=== PATIENT | male | born 1975 | race Caucasian/White ===

== ENCOUNTER 2018-07-27 08:50 | Emergency (ER) | payer MEDICAID, SELFPAY ==
[2018-07-27 08:51] VITALS: BP 164/114; PULSE 100; RESP 22; TEMP 36.8; O2SAT 100; BMI 31.0
--- NOTE | 2018-07-27 09:01 | CT_ITS ---
STUDY: CT ABDOMEN AND PELVIS WITHOUT CONTRAST REASON FOR EXAM: Male, 42 years old. Right lower quadrant pain. Nausea and vomiting this a.m. RADIATION DOSAGE (If Supplied By Facility): CTDIvol = ( 14.76 ) mGy, DLP = ( 778.33 ) mGycm TECHNIQUE: Transaxial images were obtained from the dome of the diaphragm to the symphysis pubis without oral contrast, and without intravenous contrast. Sagittal and coronal images were reconstructed. Individualized dose optimization techniques were used for this CT. COMPARISON: None. FINDINGS: The visualized lung bases are unremarkable. The visualized portions of the heart are within normal limits. Diffuse fatty infiltration of the liver. Normal gallbladder and extrahepatic biliary system. Normal spleen. Normal pancreas. Normal bilateral adrenal glands. Right kidney: 2 mm nonobstructing calculus in the right upper pole. 5 mm nonobstructing calculus in the anterior aspect of the right lower renal pole. No hydronephrosis. Left kidney: Normal. Normal visualized stomach. Normal small intestine. Small diverticula in the medial aspect of the mid to upper ascending colon without diverticulitis. The appendix is visualized and appears normal. Normal abdominal aorta. Normal inferior vena cava. Normal retroperitoneum. Normal urinary bladder. Normal abdominal wall. L5-S1 disc space height narrowing with degenerative vacuum phenomenon and Modic type III degenerative and sclerotic changes of the vertebral marrow underneath the vertebral endplates. The escape of due to vacuum phenomena and behind the S1 vertebral body is most likely due to posterior annular tear. Minimal anterior posterior marginal spurs. There is slight anterior wedging of L1 superior endplate may be developmental or from remote injury. CT/Abdomen/Pelvis without Cont IMPRESSION: 1. Normal CT of the appendix. 2. Few diverticula in the mid to upper ascending colon without diverticulitis. 3. 2 mm nonobstructing calculus in the right upper renal pole and 5 mm nonobstructing calculus in the right lower renal pole. 4. Diffuse hepatic steatosis. 5. Normal CT of the left kidney. 6. No CT evidence of suspicious mass or acute abnormality in the abdomen and pelvis. 7. Pronounced L5-S1 disc space height narrowing with degenerative vacuum phenomenon, posterior annular tear allowing escape of degenerative vacuum phenomena and behind the S1 body and Modic type III degenerative vertebral marrow sclerosis underneath the vertebral endplates. Electronically Signed: Wilman Lovelace MD at 10:09 EST , Service support ,
--- NOTE | 2018-07-27 09:02 | ED.VISSUMM ---
- ER Visit Summary Date of Service: 07/27/18 Chief Complaint: [] Sudden onset of right flank pain this morning History of Present Illness: The patient is a 42 M [] of IBS is very stable went to bed feeling fine woke at 7 AM with severe pain to the right flank and right abdomen causing vomiting he cannot find a position of comfort he is constantly pacing around the room and vomiting. He has no history of this type of process, he has no history of kidney stones UTI appendicitis abdominal surgeries he has had no vomiting or diarrhea prior to the above he was not around anyone who is sick no exposures again went to bed feeling fine Physical Examination: [] 164/111, general, no distress resting comfortably, until he starts to vomit he is pacing around the room holding his right flank HEENT is generally unremarkable The neck is supple no adenopathy Cardiovascular, regular rate and rhythm Lungs, clear bilateral Abdomen, soft nontender, he complains of pain diffusely over the right flank Extremities, no clubbing cyanosis or edema Neurologic, awake alert answering questions appropriately moving all 4 extremities Test Results: [] Emergency Department Course and Treatment: [] Given the above IV fluids pain management screening labs CT The patient's screening labs are all generally unremarkable, please see those reports, the CT scan shows normal appendix normal intra-abdominal structures, nothing acute no hydronephrosis, he does have 2 kidney stones within the kidney but nothing obstructing His UA is pending as he has not voided yet but feels the need to do so Stable he is feeling much better his symptoms are completely resolved he has no pain no nausea I explained the differential to him the likelihood this is related to a kidney stone likely passed given the nature of his symptoms his presentation, the fact that he has 2 nonobstructing kidney stones in his right kidney, he is comfortable discharge home, Flomax for the next few days, Naprosyn and [place] only as needed and he will follow-up with [facility] and return for change in symptoms Treatment Plan: [] Disposition: [] Home stable Impression: [] Right flank pain resolved, renal colic This note was generated with [employer] software. It may contain incorrect words, spelling, and punctuation that were not noted in review of the chart prior to signing ED Disposition - Plan for ED Patient: Chief Complaint: Abd Pain Referrals: Julius Valentin [Primary Care Provider] -
[2018-07-27 09:20] LABS: Absolute Lymphocyte Count 3.24 X10^3/ul (0.83-4.51); Absolute Neutrophil Count 5.2 X10^3/uL (2.0-7.7); Basophil# 0.02 X10^3/uL; Basophil% 0.2 % (0-1); Eosinophil# 0.08 X10^3/uL; Eosinophils% 0.8 % (0-5); Hematocrit 48.9 % (40-54); Hemoglobin 17.1 g/dl (13.0-16.5); Lymphocyte # 3.24 X10^3/ul (4.0); Lymphocyte % 33.8 % (19-41); Mean Corpuscular Hgb 32.3 pg (27.0-32.0); Mean Corpuscular Volume 92.3 fL (80-94); Mean Platelet Vol. 9.7 fl (6.2-12.0); Monocyte# 1.03 X10^3/uL; Monocyte% 10.7 % (0-10); Neutrophil # 5.22 X10^3/uL (2.7-7.7); Neutrophil % 54.4 % (47-70); Platelet Count 320 K/mm3 (150-450); RBC Distribution Width CV 12.2 % (11.6-14.6); White Blood Count 9.6 K/mm3 (4.4-11.0)
[2018-07-27] MEDS: Ketorolac 30 MG/ML Syringe IV (09:20)
[2018-07-27] MEDS: 0.9% Normal Saline 1,000 ML 1000 ML IV (09:20)
[2018-07-27] MEDS: Morphine 4 MG/ML Syringe IV (09:20)
[2018-07-27] MEDS: Ondansetron 4 MG/2 ML Vial IV (09:20)
[2018-07-27 09:22] LABS: POSITIVE COUNT NO; POSITIVE DIFFERENTIAL NO; POSITIVE MORPHOLOGY NO
[2018-07-27 09:34] LABS: AST(SGOT) 31 U/L (15-37); Alanine Aminotransfer ALT/SGPT 62 U/L (16-61); Albumin, Serum 4.6 g/dL (3.2-5.0); Alkaline Phosphatase 72 U/L (45-117); Anion Gap 13 (5-15); BUN 13 mg/dL (7-18); Bilirubin, Direct 0.39 mg/dL (0.00-0.30); Calcium,Total 9.3 mg/dL (8.5-10.1); Chloride 105 mmol/L (98-107); EST Glomerular Filtration Rate 64 mL/min (>60); Est Glom Filt Rate - Afr Amer 78 mL/min (>60); Estimated Creatinine Clearance 74.02 ml/min; Globulin 3.9 g/dL (2.2-4.2); Glucose 171 mg/dL (74-106); Lipase 94 U/L (73-393); Potassium 3.4 mmol/L (3.5-5.1); Protein, Total 8.5 g/dL (6.4-8.2); Sodium Level 138 mmol/L (136-145)
[2018-07-27] MEDS: 0.9% Normal Saline 1,000 ML 999 ML IV (10:07)
--- NOTE | 2018-07-27 10:19 | ED.RN ---
PT PAIN FREE AT PRESENT TIME. 2 ND LITER OF SALINE UP AND INFUSING
--- NOTE | 2018-07-27 10:48 | ED.DEP ---
ED Disposition - Plan for ED Patient: Chief Complaint: Abd Pain Instructions: ED Abdominal Pain Unkn Cause, ED Stone Renal W Colic Prescriptions: Hydrocodone Bitart/Apap 5-325 [[place] 5MG-325MG] 1 tab PO Q4H PRN PRN 2 Days #10 tab PRN Reason: Pain Naproxen [Naprosyn] 500 mg PO BID PRN #20 tab Tamsulosin HCl [Flomax] 0.4 mg PO DAILY #7 cap Referrals: Julius Valentin [Primary Care Provider] - Philip Pedroza MD [STAFF PHYSICIAN] -
--- NOTE | 2018-07-27 10:51 | DCINST.ED_ITS ---
ED Disposition - Plan for ED Patient: Chief Complaint: Abd Pain Instructions: ED Abdominal Pain Unkn Cause, ED Stone Renal W Colic Prescriptions: Hydrocodone Bitart/Apap 5-325 [[place] 5MG-325MG] 1 tab PO Q4H PRN PRN 2 Days #10 tab PRN Reason: Pain Naproxen [Naprosyn] 500 mg PO BID PRN #20 tab Tamsulosin HCl [Flomax] 0.4 mg PO DAILY #7 cap Referrals: Julius Valentin [Primary Care Provider] - Philip Pedroza MD [STAFF PHYSICIAN] -
[2018-07-27 10:52] VITALS: BP 130/91; PULSE 80; RESP 16; O2SAT 96
[2018-07-27 10:58] LABS: Bacteria 0 SEEN /hpf (None Seen); Mucous, Urine 0 SEEN /hpf (<or=2+); Red Blood Cells-Urine 0 SEEN /hpf (0-5); Squamous Epithelial Cells - UA 0 SEEN /hpf (0-5); White Blood Cells 0 SEEN /hpf (0-5)
[2018-07-27 11:00] LABS: Color, Urine Yellow (Yellow); Glucose, Dipstick Normal (Normal); Ketone-Dipstick 15 mg/dl (Negative); Leukocyte Esterase-Dipstick 25 /ul (Negative); Nitrite-Dipstick Negative (Negative); Occult Blood-Urine 250 /ul (Negative); Protein-Dipstick 30 mg/dl (Negative); Specific Gravity, Urine 1.025 (1.002-1.030); Urine Bilirubin Dipstick Negative (Negative); Urine Clarity Clear (Clear); Urine Urobilinogen Normal (Normal)
== END 2018-07-27 11:07 | disposition home or self-care (01) ==
PROVIDERS: Emergency Provider Emergency Medicine; Family Provider Family Medicine; PCP Family Medicine
DX: N23 Unspecified renal colic (principal); K57.30 Diverticulosis of large intestine without perforation or abscess without bleeding; K76.0 Fatty (change of) liver, not elsewhere classified; K58.9 Irritable bowel syndrome, unspecified
CPT/HCPCS: 74176; 80048; 80076; 81001; 83690; 85025; 96374; 96375; 96376; 99283; J7030; A4216; J2405

== ENCOUNTER 2019-07-05 19:52 | Emergency (ER) | payer MEDICAID, SELFPAY ==
[2019-07-05 19:53] VITALS: BP 160/90; PULSE 81; RESP 18; TEMP 36.9; O2SAT 95; BMI 31.0
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
--- NOTE | 2019-07-05 21:25 | ED.DEP ---
ED Disposition - Plan for ED Patient: Instructions: CONTUSION, Upper Extremity Prescriptions: Naproxen [Naprosyn] 500 mg PO BID PRN #20 tablet Referrals: Julius Valentin [Primary Care Provider] -
[2019-07-05] MEDS: HYDROcodone Bitartrate/Apap 5/325 Tablet PO (21:49)
== END 2019-07-05 21:50 | disposition home or self-care (01) ==
LOC: ED 20:48
PROVIDERS: Emergency Provider Emergency Medicine; Family Provider Family Medicine; PCP Family Medicine
DX: S60.211A Contusion of right wrist, initial encounter (principal); V89.2XXA Person injured in unspecified motor-vehicle accident, traffic, initial encounter; Y93.9 Activity, unspecified; Y99.9 Unspecified external cause status; Y92.410 Unspecified street and highway as the place of occurrence of the external cause
CPT/HCPCS: 73110; 73130; 99283

== ENCOUNTER 2019-12-30 19:36 | Emergency (ER) | payer MEDICAID, SELFPAY ==
[2019-12-30 19:37] VITALS: PULSE 87; RESP 24; TEMP 36.6; O2SAT 100; BMI 32.5
--- NOTE | 2019-12-30 19:48 | CT_ITS ---
STUDY: CT ABDOMEN AND PELVIS WITHOUT CONTRAST REASON FOR EXAM: Male, 44 years old. LT FLANK AND GROIN PAIN X 3 HOURS. Hx of kidney stones left kidney RADIATION DOSAGE (If Supplied By Facility): CTDIvol = ( 19.12 ) mGy, DLP = ( 974.30 ) mGycm TECHNIQUE: Transaxial images were obtained from the dome of the diaphragm to the symphysis pubis without oral contrast, and without intravenous contrast. Sagittal and coronal images were reconstructed. Individualized dose optimization techniques were used for this CT. COMPARISON: Prior abdomen and pelvic CT exam of July 27, 2018 FINDINGS: The visualized lung bases are unremarkable. The visualized portions of the heart are within normal limits. Fatty liver Normal gallbladder and extrahepatic biliary system. Normal spleen. Normal pancreas. Normal bilateral adrenal glands. Normal size of the right kidney with one to 3 mm nonobstructing stones in the upper and lower poles without hydronephrosis or ureteral stones. Normal size of the left kidney without hydronephrosis. There are several 1 to 2 mm nonobstructing stones in the left kidney with no ureteral stones; however, there is one stone 1 to 2 mm in size lying dependently in the midline of the bladder lumen, probably a recently passed stone. Normal visualized stomach. Normal small intestine. Minimal diverticulosis of the colon without evidence of acute diverticulitis. The appendix is visualized and appears normal. Normal abdominal aorta. Normal inferior vena cava. Normal retroperitoneum. Normal urinary bladder. Patulous inguinal rings. Degenerative disc findings at L5-S1. CT/Abdomen/Pelvis without Cont IMPRESSION: Normal size of the left kidney with multiple 1 to 2 mm nonobstructing stones in the upper and lower pole without hydronephrosis. Minimal dilatation of the distal left ureter without ureteral stones. There is a 1 to 2 mm stone in the bladder lumen which is likely recently passed from the distal left ureter. Normal size of the right kidney with multiple nonobstructing 1 to 3 mm nonobstructing stones without ureteral stones. Fatty liver. Minimal diverticulosis. Degenerative disc changes at L5-S1. Electronically Signed: Leticia Winter MD at 20:30 EDT , Service support ,
[2019-12-30] MEDS: Ketorolac 30 MG/ML Syringe IV (19:55)
[2019-12-30] MEDS: Morphine 4 MG/ML Syringe IV (19:55)
[2019-12-30] MEDS: Ondansetron 4 MG/2 ML Vial IV (19:55)
[2019-12-30] MEDS: 0.9% Normal Saline 1,000 ML 250 ML IV (19:59)
[2019-12-30 20:16] VITALS: BP 140/87; PULSE 77; RESP 16; O2SAT 97
[2019-12-30 20:53] LABS: Bacteria 0 SEEN /hpf (None Seen); Mucous, Urine 0 SEEN /hpf (<or=2+); White Blood Cells 0 SEEN /hpf (0-5)
[2019-12-30 20:55] LABS: Color, Urine Yellow (Yellow); Glucose, Dipstick Normal (Normal); Ketone-Dipstick Negative (Negative); Leukocyte Esterase-Dipstick 25 /ul (Negative); Nitrite-Dipstick Negative (Negative); Occult Blood-Urine 250 /ul (Negative); Protein-Dipstick Negative (Negative); Urine Bilirubin Dipstick Negative (Negative); Urine Clarity Clear (Clear); Urine Urobilinogen Normal (Normal)
[2019-12-30 21:02] LABS: Red Blood Cells-Urine 10-25 SEEN /hpf (0-5); Squamous Epithelial Cells - UA 0-5 SEEN /hpf (0-5)
--- NOTE | 2019-12-30 21:41 | ED.VISSUMM ---
- ER Visit Summary Date of Service: 12/30/19 Chief Complaint: Left flank pain History of Present Illness: The patient is a [address] Valentin. Reports a 45 minutes ago he had the abrupt onset of a sharp left flank pain with radiation to the left lower quadrant. Pain is 10 on 10 severity. Is worsened by nothing relieved by nothing. He is been nausea and vomited multiple times. No blood in his emesis. He has had frequent urination and pressure since this began. This is similar to when he had kidney stones in the past. Physical Examination: Vitals: Stable. Afebrile. General: Well-nourished and well-developed. Head: Normocephalic atraumatic. Neck: Supple, no lymphadenopathy. No JVD. Nontender. Cardiovascular: Regular rate and rhythm. No murmurs. Respiratory: No respiratory distress. Clear to auscultation bilaterally. Abdominal: Soft, nontender, nondistended, normal bowel sounds. No guarding, rebound, or peritoneal signs. Back: Nontender. Extremities: Nontender, no edema. Skin: Normal color, no rash. Neurologic: Alert and oriented ?3. Cranial nerves II through XII are intact. Normal strength and sensation. Psych: Normal affect. Test Results: Urinalysis shows no evidence of infection. Clinical Impression(s) from Imaging Studies Abdomen/Pelvis CT 12/30/19 19:48 IMPRESSION: Normal size of the left kidney with multiple 1 to 2 mm nonobstructing stones in the upper and lower pole without hydronephrosis. Minimal dilatation of the distal left ureter without ureteral stones. There is a 1 to 2 mm stone in the bladder lumen which is likely recently passed from the distal left ureter. Normal size of the right kidney with multiple nonobstructing 1 to 3 mm nonobstructing stones without ureteral stones. Fatty liver. Minimal diverticulosis. Degenerative disc changes at L5-S1. Electronically Signed: Leticia Winter MD at 20:30 EDT , Service support , Emergency Department Course and Treatment: Patient was treated Toradol, morphine, and Zofran IV. He is resting comfortably and feels much improved. Treatment Plan: CT appears that the patient's stone has passed. He will be discharged with prescription for 10 [place], naproxen, and Zofran. Instructed to follow-up his primary care physician 1 week if not improving. Return to the emergency department for any worsening symptoms. Disposition: To home in improved and stable condition. Impression: 1. Left ureterolithiasis. This note was generated with [employer] dictation software. It may contain incorrect words, spelling, and punctuation that were not noted in review of the chart prior to signing ED Disposition - Plan for ED Patient: Instructions: ED RENAL STONE Passed Prescriptions: Naproxen [Naprosyn] 500 mg PO BID #14 tablet Hydrocodone Bitart/Apap 5-325 [[place] 5MG-325MG] 1 tablet PO Q4H PRN PRN 2 Days #10 tablet PRN Reason: Pain Ondansetron [Zofran Odt] 4 mg PO Q8H PRN PRN #10 tablet PRN Reason: Nausea Referrals: Julius Valentin [Primary Care Provider] - 1 Week if not improving
[2019-12-30 21:48] VITALS: BP 150/86; PULSE 77; RESP 15; O2SAT 97
== END 2019-12-30 21:54 | disposition home or self-care (01) ==
LOC: ED 20:27
PROVIDERS: Emergency Provider Emergency Medicine; PCP Family Medicine
DX: N20.1 Calculus of ureter (principal); N21.0 Calculus in bladder; M51.37 Other intervertebral disc degeneration, lumbosacral region; K76.0 Fatty (change of) liver, not elsewhere classified; Z87.442 Personal history of urinary calculi
CPT/HCPCS: 36415; 74176; 81001; 96361; 96374; 96375; 99282; J7030; J2405

== ENCOUNTER 2020-02-22 17:30 | Emergency (ER) | payer MEDICAID, SELFPAY ==
[2020-02-22 17:31] VITALS: BP 152/102; PULSE 92; RESP 18; TEMP 36.9; O2SAT 96; BMI 31.7
[2020-02-22] MEDS: 0.9% Normal Saline 1,000 ML 1000 ML IV (18:57)
[2020-02-22] MEDS: Ketorolac 30 MG/ML Syringe 15 MG IV (18:57)
[2020-02-22] MEDS: Ondansetron 4 MG/2 ML Vial IV (18:57)
[2020-02-22] MEDS: Morphine 4 MG/ML Syringe IV (18:57)
[2020-02-22 19:24] LABS: Bacteria 0 SEEN /hpf (None Seen); Squamous Epithelial Cells - UA 0 SEEN /hpf (0-5)
[2020-02-22 19:26] LABS: Color, Urine Yellow (Yellow); Glucose, Dipstick Normal (Normal); Ketone-Dipstick 5 mg/dl (Negative); Leukocyte Esterase-Dipstick 25 /ul (Negative); Nitrite-Dipstick Negative (Negative); Occult Blood-Urine 250 /ul (Negative); Protein-Dipstick 30 mg/dl (Negative); Specific Gravity, Urine 1.025 (1.002-1.030); Urine Bilirubin Dipstick Negative (Negative); Urine Clarity Sl. Cloudy (Clear); Urine Urobilinogen 1 mg/dl (Normal)
[2020-02-22 19:39] LABS: Mucous, Urine 2+ /hpf (<or=2+); Red Blood Cells-Urine 25-50 SEEN /hpf (0-5); White Blood Cells 0-5 SEEN /hpf (0-5)
--- NOTE | 2020-02-22 19:55 | ED.VISSUMM ---
- ER Visit Summary Date of Service: 02/22/20 Chief Complaint: Right flank pain History of Present Illness: The patient is a 44 M who sees for consult. He does not have a urologist. He reports that at 330 this afternoon he had the abrupt onset of a stabbing, aching pain in his right flank consistent with prior kidney stones. Reports pain is 10 of 10 at worst 4-10 currently. Is worsened by nothing. Spent significant relief with Vicodin and Zofran. He said nausea without vomiting. No diarrhea. His last bowel was yesterday. No hematochezia. He does complain of dysuria frequency. Physical Examination: Vitals: Stable. Afebrile. General: Well-nourished and well-developed. Head: Normocephalic atraumatic. Neck: Supple, no lymphadenopathy. No JVD. Nontender. Cardiovascular: Regular rate and rhythm. No murmurs. Respiratory: No respiratory distress. Clear to auscultation bilaterally. Abdominal: Soft, nontender, nondistended, normal bowel sounds. No guarding, rebound, or peritoneal signs. Back: Nontender. Extremities: Nontender, no edema. Skin: Normal color, no rash. Neurologic: Alert and oriented ?3. Cranial nerves II through XII are intact. Normal strength and sensation. Psych: Normal affect. Test Results: Urinalysis shows 25-50 red blood cells. I reviewed the patient's last CT earlier this year. He had a 3 mm right ureteral stone. I do not feel that repeat imaging is needed. Emergency Department Course and Treatment: Patient was treated with Toradol, Zofran, and morphine IV. He is resting comfortably. Treatment Plan: Patient will be discharged with [place], naproxen, and Zofran. Instructed to follow-up Dr. Pedroza in 1 week if not improving. He is given a urine strainer instructed to keep the stone and send it for analysis. He does understand that there is the potential that this may be a uric acid stone as he has gout. Return to the emergency department for any worsening symptoms. Disposition: To home in improved and stable condition. Impression: 1. Right ureterolithiasis. This note was generated with [employer] software. It may contain incorrect words, spelling, and punctuation that were not noted in review of the chart prior to signing ED Disposition - Plan for ED Patient: Disposition: Home or Assisted Living Instructions: ED Renal Stone w Colic Prescriptions: Naproxen [Naprosyn] 500 mg PO BID #14 tab Prescription Printed Hydrocodone Bitart/Apap 5-325 [[place] 5MG-325MG] 1 tab PO Q4H PRN PRN 2 Days #10 tab PRN Reason: Pain Prescription Printed Ondansetron [Zofran Odt] 4 mg PO Q8H PRN PRN #10 tab PRN Reason: Nausea Prescription Printed Referrals: Julius Valentin DO [Primary Care Provider] - 1-2 Weeks Philip Pedroza MD [STAFF PHYSICIAN] - 1 Week if not improving
[2020-02-22 20:41] VITALS: RESP 16
== END 2020-02-22 20:42 | disposition home or self-care (01) ==
LOC: ED 18:02
PROVIDERS: Emergency Provider Emergency Medicine; PCP Family Medicine
DX: N20.1 Calculus of ureter (principal); R30.0 Dysuria; M54.9 Dorsalgia, unspecified; R11.0 Nausea; R10.9 Unspecified abdominal pain; R35.0 Frequency of micturition; Z87.442 Personal history of urinary calculi; M10.9 Gout, unspecified
CPT/HCPCS: 81001; 96361; 96374; 96375; 99283; J7030; J2405

== ENCOUNTER 2020-02-26 20:03 | Emergency (ER) | payer MEDICAID, SELFPAY ==
[2020-02-26 20:04] VITALS: BP 138/107; PULSE 79; RESP 16; TEMP 36.6; O2SAT 98; BMI 33.0
--- NOTE | 2020-02-26 20:12 | CT_ITS ---
STUDY: CT ABDOMEN AND PELVIS WITHOUT CONTRAST REASON FOR EXAM: Male, 44 years old. Flank pain, history of kidney stones RADIATION DOSAGE (If Supplied By Facility): CTDIvol = ( 15.85 ) mGy, DLP = ( 863.43 ) mGycm TECHNIQUE: Transaxial images were obtained from the dome of the diaphragm to the symphysis pubis without oral contrast, and without intravenous contrast. Sagittal and coronal images were reconstructed. Individualized dose optimization techniques were used for this CT. COMPARISON: 30 December 2019 FINDINGS: There is minor right basilar atelectasis. There is a punctate, 2 mm, stone in the right ureterovesical junction without upstream hydronephrosis. There are 2 right calyceal nonobstructing stones measuring 2 and 4 mm. There is a left 2 mm stone in the posterior interpolar region calyx. There are no left ureteral stones. Prior imaging demonstrated a left passed stone. The liver is severely fatty infiltrated and moderately enlarged with blunting of the inferior margin. There is no biliary dilation. Spleen, adrenals and pancreas are normal. There is no intestinal obstruction. There is colonic diverticulosis without diverticulitis. Appendix is normal. 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 This is a benign metabolically adverse condition associated with diabetes and accelerated atherosclerosis and elevated future risk of adverse cardiovascular events such as morbidity and mortality. This does not require dedicated imaging. Osseous structures are intact. CT/Abdomen/Pelvis without Cont IMPRESSION: 1. 2 mm right UVJ stone without hydronephrosis. 2. Multiple bilateral renal calculi, stone forming metabolic state. Nephrology referral is advised. 3. Abdominal lipomatosis, bariatric referral is advised. 4. Severe hepatic steatosis, hepatomegaly, impending cirrhosis. Hepatology referral is advised. Electronically Signed: Librado Su, at 21:05 EDT Tel , Service support ,
[2020-02-26] MEDS: 0.9% Normal Saline 1,000 ML 250 ML IV (20:23)
[2020-02-26] MEDS: Ondansetron 4 MG/2 ML Vial IV (20:24)
[2020-02-26] MEDS: Ketorolac 30 MG/ML Syringe IV (20:24)
[2020-02-26] MEDS: morphine 8 MG/ML Syringe IV (20:25)
[2020-02-26 20:42] LABS: Absolute Lymphocyte Count 2.57 X10^3/uL (0.83-4.51); Absolute Neutrophil Count 6.4 X10^3/uL (2.0-7.7); Basophil# 0.05 X10^3/uL; Basophil% 0.5 % (0-1); Eosinophil# 0.25 X10^3/uL; Eosinophils% 2.3 % (0-5); Hematocrit 45.7 % (40-54); Hemoglobin 15.8 g/dL (13.0-16.5); Lymphocyte # 2.57 X10^3/ul (4.0); Lymphocyte % 23.8 % (19-41); Mean Corp Hgb Conc 34.6 g/dL (32-36); Mean Corpuscular Hgb 32.3 pg (27.0-32.0); Mean Corpuscular Volume 93.5 fL (80-94); Monocyte# 1.51 X10^3/uL; NRBC Flagged by Analyzer 0 % (0-5); Neutrophil # 6.35 X10^3/uL (2.7-7.7); Neutrophil % 58.9 % (47-70); POSITIVE DIFFERENTIAL YES; Platelet Count 299 K/mm3 (150-450); RBC Distribution Width CV 11.9 % (11.6-14.6); RBC Distribution Width SD 41.2 fl (35.1-43.9); Red Blood Count 4.89 M/mm3 (4.6-6.2); White Blood Count 10.8 K/mm3 (4.4-11.0)
--- NOTE | 2020-02-26 20:44 | ED.VIS.GEN ---
History of Present Illness Chief Complaint: Flank Pain Informant: Patient Onset: Days Context: Gradual Onset Timing: Continuous Current Severity: Moderate Maximum Severity: Severe Narrative: The patient is a 44-year-old male with medical history significant for kidney stone that presents to the emergency department increasing flank pain. The patient was seen here 3 days ago for the same. At that point, he did not have imaging. His urine was consistent with stone. He was treated with analgesics. He states he was feeling better until yesterday. He states pain worsened. He has had difficulty controlling his pain. Is been nauseated without vomiting. He is never required lithotripsy or stenting. He is otherwise been in his normal state of health. Prior similar symptoms: No Recent Illness/Hospitalization: No Past Medical History - Allergies and Home Meds Allergies/Adverse Reactions: Allergies Penicillins [PCN] Allergy (Verified 02/26/20 20:04) Unknown Primary Care Physician: Julius Valentin DO [Primary Care Provider] - Prior records reviewed: Yes Past Medical History: None Surgical History: - - Nasal cautery is used secondary to severity of epistaxis. Smoking Status: Never smoker - Family History Maternal Family History: Reports: No pertinent history Paternal Family History: Reports: - - Notable paternal family history in father and grandmother of early heart disease, coronary disease. Review of Systems General: Denies: Chills, Fever, Sweats Eyes: Denies: Visual changes - bilaterally, Diplopia ENT: Denies: Rhinorrhea, Sore throat Cardiovascular: Denies: Chest pain, Palpitations Respiratory: Denies: Dyspnea, Cough, Dyspnea on exertion Gastrointestinal: Denies: Abdominal pain, Nausea, Vomiting, Diarrhea, Melena, Hematochezia Genitourinary: Denies: Dysuria, Hematuria, Frequency Musculoskeletal: Denies: Back pain, Extremity Pain Skin: Denies: Rash, Wounds Neurological: Denies: Headache, Weakness, Numbness Physical Exam Vital Signs/Narrative: Vital Signs Temp Pulse Resp BP Pulse Ox 02/26/20 20:04 97.9 F 79 16 138/107 H 98 Inital Vital Signs reviewed: Yes General: Well nourished, Well developed, No Acute Distress Head: Normocephalic, Atraumatic Eyes: Perrl, EOMI ENT: Moist mucous membranes, No rhinorrhea Neck: Supple, Nontender Cardiovascular: Regular rate, Regular rhythm, No murmurs Respiratory: No distress, CTA bilaterally, Chest nontender Abdomen: Soft, Nontender, Nondistended, Normal bowel sounds Back: Nontender, Normal Inspection Extremities: Nontender, No edema Skin: Normal color, No rash Neurological: Alert, Oriented x3, Cranial nerves II-XII grossly intact, Normal Strength, Normal Sensation Psychological: Normal affect, Normal Mood Diagnostic/Tx/Re-eval Clinical Impression(s) from Imaging Studies Abdomen/Pelvis CT 02/26/20 20:12 IMPRESSION: 1. 2 mm right UVJ stone without hydronephrosis. 2. Multiple bilateral renal calculi, stone forming metabolic state. Nephrology referral is advised. 3. Abdominal lipomatosis, bariatric referral is advised. 4. Severe hepatic steatosis, hepatomegaly, impending cirrhosis. Hepatology referral is advised. Electronically Signed: Librado Su, at 21:05 EDT Tel , Service support , Abnormal Lab Results 02/26/20 02/26/20 02/26/20 20:25 20:25 21:20 WBC 10.8 RBC 4.89 Hgb 15.8 Hct 45.7 MCV 93.5 MCH 32.3 H MCHC 34.6 RDW Std Deviation 41.2 RDW Coeff of Giovani 11.9 Plt Count 299 MPV 10.0 Immature Gran % (Auto) 0.500 Neut % (Auto) 58.9 Lymph % (Auto) 23.8 [place] % (Auto) 14.0 H Eos % (Auto) 2.3 Baso % (Auto) 0.5 Absolute Neuts (auto) 6.4 Absolute Lymphs (auto) 2.57 Nucleated RBC % 0 Differential Comment SCANNED Sodium 141 Potassium 4.1 Chloride 107 Carbon Dioxide 27.0 Anion Gap 7 BUN 17 Creatinine 1.37 H Estim Creat Clear Calc 68.81 Est GFR (MDRD) Af Amer 73 Est GFR (MDRD) Non-Af 60 BUN/Creatinine Ratio 12.4 Glucose 112 H Calcium 9.5 Urine Color Yellow Urine Clarity Sl. Cloudy Urine pH 6.0 Ur Specific [place] 1.025 Urine Protein 15 H Urine Glucose (UA) Normal Urine Ketones Negative Urine Occult Blood 25 H Urine Nitrite Positive H Urine Bilirubin Negative Urine Urobilinogen Normal Ur Leukocyte Esterase Negative Urine RBC 0-5 SEEN Urine WBC 0-5 SEEN Ur Squamous Epith Cells 0-5 SEEN Urine Bacteria RARE Urine Mucus 0 SEEN - Medical Decision Making The patient presents with signs and symptoms consistent with kidney stone. He did not have imaging before and now has worsening pain. IV was established. He was given analgesics and antiemetics with improvement of his symptoms. Screening labs were obtained were unremarkable. CT does demonstrate a 2 mm stone at the UVJ on the right with no hydronephrosis. As the patient's pain is now controlled, I do feel that he is safe for outpatient follow-up. He does have an appointment scheduled already with urology in [place]. He is comfortable with this plan of care and will be discharged. Impression 1. Renal colic secondary to 2 mm kidney stone ED Disposition - Plan for ED Patient: Instructions: ED Renal Stone w Colic Prescriptions: Tamsulosin HCl [Flomax] 0.4 mg PO DAILY #7 cap Prescription Printed Oxycodone HCl/Acetaminophen [Percocet 5/325] 1 tab PO Q6H PRN PRN 3 Days #12 tab PRN Reason: Pain Prescription Printed Ondansetron [Zofran Odt] 4 mg PO Q8H PRN PRN #10 tab PRN Reason: Nausea Prescription Printed Referrals: Julius Valentin DO [Primary Care Provider] -
[2020-02-26 20:46] LABS: Differential Indicated SCAN CRITERIA MET
[2020-02-26 20:55] LABS: Anion Gap 7 (5-15); BUN 17 mg/dL (7-18); BUN/Creat Ratio 12.4 RATIO (10-20); Calcium,Total 9.5 mg/dL (8.5-10.1); Chloride 107 mmol/L (98-107); Creatinine, Serum 1.37 mg/dL (0.70-1.30); EST Glomerular Filtration Rate 60 mL/min (>60); Est Glom Filt Rate - Afr Amer 73 mL/min (>60); Estimated Creatinine Clearance 68.81 ml/min; Glucose 112 mg/dL (74-106); Potassium 4.1 mmol/L (3.5-5.1); Sodium Level 141 mmol/L (136-145)
[2020-02-26 21:13] LABS: Differential Comment SCANNED
[2020-02-26 21:33] LABS: Mucous, Urine 0 SEEN /hpf (<or=2+)
[2020-02-26 21:46] LABS: Color, Urine Yellow (Yellow); Glucose, Dipstick Normal (Normal); Ketone-Dipstick Negative (Negative); Leukocyte Esterase-Dipstick Negative /ul (Negative); Nitrite-Dipstick Positive (Negative); Occult Blood-Urine 25 /ul (Negative); Protein-Dipstick 15 mg/dl (Negative); Specific Gravity, Urine 1.025 (1.002-1.030); Urine Bilirubin Dipstick Negative (Negative); Urine Clarity Sl. Cloudy (Clear); Urine Urobilinogen Normal (Normal)
[2020-02-26] MEDS: HYDROmorphone 1 MG/ML Syringe IV (21:49)
[2020-02-26 21:55] LABS: Red Blood Cells-Urine 0-5 SEEN /hpf (0-5); Squamous Epithelial Cells - UA 0-5 SEEN /hpf (0-5); White Blood Cells 0-5 SEEN /hpf (0-5)
[2020-02-26 21:57] LABS: Bacteria RARE /hpf (None Seen)
[2020-02-26 22:00] VITALS: PULSE 88; RESP 16; O2SAT 97
[2020-02-26 23:20] VITALS: BP 135/86; PULSE 72; RESP 16; O2SAT 98
== END 2020-02-26 23:27 | disposition home or self-care (01) ==
LOC: ED 20:27
PROVIDERS: Emergency Provider Emergency Medicine; PCP Family Medicine
DX: N20.0 Calculus of kidney (principal); E88.2 Lipomatosis, not elsewhere classified; K76.0 Fatty (change of) liver, not elsewhere classified; Z82.49 Family history of ischemic heart disease and other diseases of the circulatory system; Z87.442 Personal history of urinary calculi; Z88.0 Allergy status to penicillin; R16.0 Hepatomegaly, not elsewhere classified
CPT/HCPCS: 74176; 80048; 81001; 85025; 96361; 96374; 96375; 99283; J7030; A4216; J2405

== ENCOUNTER 2020-04-17 18:40 | Inpatient (IN) | payer MEDICAID, SELFPAY ==
[2020-04-17 18:41] VITALS: BP 145/102; PULSE 86; RESP 20; TEMP 36.7; O2SAT 100; BMI 32.1
--- NOTE | 2020-04-17 18:59 | EKG12_ITS ---
Test Reason : CP Blood Pressure : / mmHG Vent. Rate : 084 BPM Atrial Rate : 084 BPM P-R Int : 120 ms QRS Dur : 090 ms QT Int : 372 ms P-R-T Axes : 025 051 056 degrees QTc Int : 439 ms Normal sinus rhythm Normal ECG Confirmed by TREVA CARBAJAL ([id number]), senior technical editor ROBINA JAIME ([id number]) on 04/21/2020 2:06:44 PM Referred By: JARRETT Confirmed By:TREVA CARBAJAL
--- NOTE | 2020-04-17 18:59 | US_ITS ---
STUDY: ABDOMINAL ULTRASOUND - RIGHT UPPER QUADRANT REASON FOR VISIT: Male, 44 years old RUQ PAIN-SEVERE-- RADIATES TO BACK TECHNIQUE: Ultrasound evaluation of the right upper quadrant was performed with real-time and static gallardo-scale imaging. TECHNICAL QUALITY: Adequate. COMPARISON: None. FINDINGS: Liver: The liver measures 18.8 cm. There is increased echogenicity consistent with fatty infiltration. The bile ducts are within normal limits. There is hepatic color flow. The direction of portal flow is hepatopetal. There is no demonstrated mass lesion. Gallbladder: There is a mildly distended gallbladder. The gallbladder wall measures 2 mm. There is a positive sonographic Fernandez''s sign. There is no pericholecystic fluid. All bladder sludge is present. Gallbladder polyps are also noted, the largest measuring 5 x 5 x 6 mm. Common Bile Duct (C.B.D.): The common bile duct measures 5 mm. Pancreas: The pancreatic tail was not visualized. The body and head are unremarkable. There is normal echogenicity of the pancreas. There is no demonstrated pancreatic mass or cyst. Right Kidney: Normal size of the right kidney. The right kidney measures 11.2 x 4.6 x 5.2 cm. Normal renal cortex. The right cortex measures 1.8 cm. There is no demonstrated renal mass or cyst. There is no right hydronephrosis. US/Gallbladder IMPRESSION: Mildly distended gallbladder. Gallbladder sludge and polyps are noted. A positive Fernandez''s sign was elicited as per diesel service technician. Pancreatic tail was not visualized. The pancreatic head and body appear normal. There is no dilatation of the intra or extra hepatic biliary ductal system. The liver is echogenic suggestive of steatosis. Electronically Signed: Diego Alonzo MD at 19:59 EDT , Service support ,
[2020-04-17] MEDS: Ondansetron 4 MG/2 ML Vial IV (19:18)
[2020-04-17] MEDS: Morphine 4 MG/ML Syringe IV (19:18)
[2020-04-17 19:23] LABS: Absolute Lymphocyte Count 1.91 X10^3/uL (0.83-4.51); Absolute Neutrophil Count 9.3 X10^3/uL (2.0-7.7); Basophil# 0.05 X10^3/uL; Basophil% 0.4 % (0-1); Eosinophil# 0.04 X10^3/uL; Eosinophils% 0.3 % (0-5); Hematocrit 50.1 % (40-54); Hemoglobin 17.2 g/dL (13.0-16.5); Lymphocyte # 1.91 X10^3/ul (4.0); Lymphocyte % 15.6 % (19-41); Mean Corp Hgb Conc 34.3 g/dL (32-36); Mean Corpuscular Volume 93.1 fL (80-94); Monocyte# 0.81 X10^3/uL; Monocyte% 6.6 % (0-10); NRBC Flagged by Analyzer 0 % (0-5); Neutrophil # 9.33 X10^3/uL (2.7-7.7); Neutrophil % 76.5 % (47-70); Platelet Count 363 K/mm3 (150-450); RBC Distribution Width CV 12.3 % (11.6-14.6); RBC Distribution Width SD 42.3 fl (35.1-43.9); Red Blood Count 5.38 M/mm3 (4.6-6.2); White Blood Count 12.2 K/mm3 (4.4-11.0)
[2020-04-17 19:38] LABS: AST(SGOT) 208 U/L (15-37); Alanine Aminotransfer ALT/SGPT 185 U/L (16-61); Albumin, Serum 4.5 g/dL (3.2-5.0); Alkaline Phosphatase 98 U/L (45-117); Anion Gap 7 (5-15); BUN 8 mg/dL (7-18); BUN/Creat Ratio 7.1 RATIO (10-20); Bilirubin, Direct 1.17 mg/dL (0.00-0.30); Calcium,Total 9.7 mg/dL (8.5-10.1); Chloride 107 mmol/L (98-107); Creatinine, Serum 1.12 mg/dL (0.70-1.30); EST Glomerular Filtration Rate 76 mL/min (>60); Est Glom Filt Rate - Afr Amer 92 mL/min (>60); Estimated Creatinine Clearance 84.17 ml/min; Globulin 3.9 g/dL (2.2-4.2); Glucose 136 mg/dL (74-106); Lipase 509 U/L (73-393); Protein, Total 8.4 g/dL (6.4-8.2); Sodium Level 142 mmol/L (136-145)
[2020-04-17 19:44] VITALS: BP 145/103; PULSE 96; RESP 14; O2SAT 100
--- NOTE | 2020-04-17 20:30 | CT_ITS ---
STUDY: CT ABDOMEN AND PELVIS WITHOUT CONTRAST REASON FOR EXAM: Male, 44 years old. RUQ PAIN RADIATES TO BACK. DISTENDED GB, SLUDGE ON US -- HX:GOUT,KIDNEY STONES RADIATION DOSAGE (If Supplied By Facility): CTDIvol = ( 20.91 ) mGy, DLP = ( 1236.85 ) mGycm TECHNIQUE: Transaxial images were obtained from the dome of the diaphragm to the symphysis pubis without oral contrast, and without intravenous contrast. Sagittal and coronal images were reconstructed. Individualized dose optimization techniques were used for this CT. COMPARISON: Previous study of 02/26/2020 FINDINGS: The visualized lung bases are unremarkable. The visualized portions of the heart are within normal limits. There is decreased attenuation of the liver consistent with steatosis. The gallbladder is mildly distended. No calcified stones are seen within. Normal spleen. Normal pancreas. Normal bilateral adrenal glands. There is a nonobstructing 3 mm right renal calculus. There is a nonobstructing 2 mm left renal calculus. Normal visualized stomach. Normal small intestine. There is diffuse colonic diverticulosis with no evidence of associated diverticulitis. The appendix is visualized and appears normal. Normal abdominal aorta. Normal inferior vena cava. Normal retroperitoneum. Normal urinary bladder. The prostate, seminal vesicles, and seminal vesicle angles appear normal. There is a small umbilical hernia containing fat. There are spinal degenerative changes at the L5-S1 level. CT/Abdomen/Pelvis W IV Cont ONLY IMPRESSION: 1. Distended gallbladder. No calcified gallstones are seen. There is no pericholecystic fluid or pericholecystic inflammatory process. 2. Nonobstructing bilateral renal calculi. 3. Diffuse colonic diverticulosis with no evidence of associated diverticulitis. 4. Small fat-containing umbilical hernia. 5. Degenerative changes of the spine at the L5-S1 level. 6. Hepatic steatosis. 7. There is no evidence of free intra-abdominal or intrapelvic air or fluid. Electronically Signed: Diego Alonzo MD at 21:09 EDT , Service support ,
--- NOTE | 2020-04-17 21:23 | ED.VISSUMM ---
- ER Visit Summary Date of Service: 04/17/20 Chief Complaint: Abdominal pain History of Present Illness: The patient is a 44 M who presents with abdominal pain. It started 3-1/2 hours ago. He states that he was eating food and then afterwards he felt like he had epigastric and right upper quadrant pain. He had nausea with vomiting as well as diarrhea. No urinary symptoms. He did not have a fever. He has no history of abdominal surgeries in the past. Tried Pepto-Bismol without any relief. He does have a history of kidney stones but this feels different. Physical Examination: Vital signs reviewed. HEENT exam unremarkable. Heart is regular rate and rhythm without murmurs. Lungs are clear to auscultation. Abdomen is soft with tenderness in the epigastric and right upper quadrant. There is no guarding or rebound tenderness. Extremities reveal no edema. Skin exam normal. Neurologic exam normal. Test Results: EKG is sinus rhythm with no ischemic changes. Troponin normal. White blood cell count 12.2, glucose 136. His total bilirubin is 2.4. Direct bilirubin 1.17. ALT 185, AST 208. Lipase is 509. Right upper quadrant ultrasound shows a distended gallbladder with sludge but no biliary dilation Emergency Department Course and Treatment: She is given morphine and Zofran with improvement of symptoms. He has had elevated total bilirubins previously but this is the highest his direct bilirubin has ever been in his liver enzymes have not been this elevated in the past. I spoke with Dr. Winslow. He requested a CT with IV contrast to rule out a pancreatic head mass. The CAT scan shows only the distended gallbladder and other chronic issues not related to his current symptoms. Patient was again discussed with surgery and he will admit the patient for likely ERCP tomorrow. Treatment Plan: [] Disposition: Admit Impression: Right upper quadrant abdominal pain, elevated liver enzymes This note was generated with [employer] dictation software. It may contain incorrect words, spelling, and punctuation that were not noted in review of the chart prior to signing ED Disposition - Plan for ED Patient: Referrals: Julius Valentin DO [Primary Care Provider] -
[2020-04-17 21:27] VITALS: BP 129/85; PULSE 82; RESP 16; TEMP 36.6; O2SAT 100
--- NOTE | 2020-04-17 21:46 | HP.PCM_ITS ---
Problem List (1) Gallstone pancreatitis Status: Acute History of Present Illness Date of Admission: 04/17/20 The patient is a 44 year old M who says that after lunch he started vomiting and having pain radiating to his back. Patient has never had problems with his gallbladder in the past. He has never had pancreatitis in the past. He says he is having nausea and vomiting and pain rating to the back but it has improved since coming in with the addition of pain medication. Past Medical History Past Medical History (Chronic Problems): Chronic Problems Gout (Chronic) Overweight (BMI 25.0-29.9) (Chronic) Allergies Penicillins [PCN] Allergy (Verified 04/17/20 18:43) Unknown Home Medications: Ambulatory Orders Medication Instructions Recorded Allopurinol [Zyloprim] 100 mg PO DAILYCM 06/16/17 Prednisone 20 mg PO Q6H PRN 02/22/20 Surgical History: - - Nasal cautery is used secondary to severity of epistaxis. Psychiatric History: No pertinent psych hx Smoking Status: Former smoker - *Family History Maternal History Items: No pertinent history Paternal History Items: - - Notable paternal family history in father and grandmother of early heart disease, coronary disease. Review of Systems Constitutional: Denies: Anorexia, Fever HEENT: Denies: Difficulty Swallowing Respiratory: Denies: Cough Gastrointestinal: Reports: Abdominal Pain, Nausea, Vomiting. Denies: Constipation, Diarrhea, Hematemesis, Hematochezia Genitourinary: Denies: Dysuria Musculoskeletal: Denies: Joint Tenderness Skin: Denies: Jaundice Neurological: Denies: Difficulty swallowing Hematologic/ Lymphatic: Denies: Anemia VTE Information - Inpt Only VTE Present on Admission: No VTE Mechan Device Prophylaxis: SCD's Patient Problems: Active and Suspected Problems Gallstone pancreatitis (Acute) - Physical Exam Vitals/I&O's: Vital Signs Temp Pulse Resp BP Pulse Ox 98 F 82 16 129/85 H 100 04/17/20 21:27 04/17/20 21:27 04/17/20 21:27 04/17/20 21:27 04/17/20 21:27 Oxygen Delivery Method Room Air Weight: 217 lb 9.187 oz Body Mass Index (BMI) 32.1 General: Alert, Oriented x3 Neck: No JVD Lungs: Normal air movement Cardiovascular: Regular rate, Regular Rhythm Abdomen: Soft, Non-Distended, Tender - Tender in the epigastric region with no rebound or guarding Musculoskeletal: No Muscle Wasting Neurological: Cranial nerves II-XII grossly intact Psych/Mental Status: Normal Affect Laboratory Results 04/17/20 18:44: WBC 12.2 H, RBC 5.38, Hgb 17.2 H, Hct 50.1, MCV 93.1, MCH 32.0, MCHC 34.3, RDW Std Deviation 42.3, RDW Coeff of Giovani 12.3, Plt Count 363, MPV 10.0, Immature Gran % (Auto) 0.600, Neut % (Auto) 76.5 H, Lymph % (Auto) 15.6 L, [place] % (Auto) 6.6, Eos % (Auto) 0.3, Baso % (Auto) 0.4, Absolute Neuts (auto) 9.3 H, Absolute Lymphs (auto) 1.91, Nucleated RBC % 0 04/17/20 18:44: Sodium 142, Potassium 4.0, Chloride 107, Carbon Dioxide 28.0, Anion Gap 7, BUN 8, Creatinine 1.12, Estim Creat Clear Calc 84.17, Est GFR (MDRD) Af Amer 92, Est GFR (MDRD) Non-Af 76, BUN/Creatinine Ratio 7.1 L, Glucose 136 H, Calcium 9.7, Total Bilirubin 2.40 H, Direct Bilirubin 1.17 H, AST 208 H, ALT 185 H, Alkaline Phosphatase 98, Troponin I < 0.015, Total Protein 8.4 H, Albumin 4.5, Globulin 3.9, Lipase 509 H Clinical Impression(s) from Imaging Studies Gallbladder Ultrasound 04/17/20 18:59 IMPRESSION: Mildly distended gallbladder. Gallbladder sludge and polyps are noted. A positive Fernandez''s sign was elicited as per blood bank laboratory technician. Pancreatic tail was not visualized. The pancreatic head and body appear normal. There is no dilatation of the intra or extra hepatic biliary ductal system. The liver is echogenic suggestive of steatosis. Electronically Signed: Diego Alonzo MD at 19:59 EDT , Service support , Abdomen/Pelvis CT 04/17/20 20:30 IMPRESSION: 1. Distended gallbladder. No calcified gallstones are seen. There is no pericholecystic fluid or pericholecystic inflammatory process. 2. Nonobstructing bilateral renal calculi. 3. Diffuse colonic diverticulosis with no evidence of associated diverticulitis. 4. Small fat-containing umbilical hernia. 5. Degenerative changes of the spine at the L5-S1 level. 6. Hepatic steatosis. 7. There is no evidence of free intra-abdominal or intrapelvic air or fluid. Electronically Signed: Diego Alonzo MD at 21:09 EDT , Service support , Current Medications Hydromorphone HCl (Dilaudid Inj) 1 mg IV Q2H PRN PRN PRN Reason: Pain Score 4-10/10 Sodium Chloride () 1,000 mls @ 125 mls/hr IV .Q8H TAYLOR Sodium Chloride () 1,000 mls @ 999 mls/hr IV .Q1H1M ONE Stop: 04/17/20 22:43 Pantoprazole Sodium 40 mg/ (Sodium Chloride) 110 mls @ 330 mls/hr IV Q24 TAYLOR Ondansetron HCl (Zofran) 4 mg IV Q6H PRN PRN PRN Reason: NAUSEA Assessment/Plan All Active Problems Gallstone pancreatitis (Acute) 44-year-old male with gallstone pancreatitis 1. Patient has pain rating to the back and ultrasound reveals no wall thickening. Patient has CT scan which did not show any mass in the pancreas and there were no obvious gallstones. I believe I see prior gallstones on a CT scan from February. The patient may have had the stones migrate downward and caused a gallstone pancreatitis. Patient has elevated lipase and elevated LFTs. I believe the patient is also dehydrated as his creatinine and hemoglobin are also elevated. 2. I discussed this with the patient and I will admit him to the floor. I will give him a bolus and start him on an IV drip and keep him n.p.o. with IV flu ids. I discussed ERCP versus laparoscopic cholecystectomy with cholangiogram. If the patient's LFTs are still elevated tomorrow and he is still having pain I will plan for ERCP tomorrow morning. If patient's symptoms resolve and his LFTs are downtrending I may proceed with laparoscopic cholecystectomy with cholangiograms. Sebastian Winslow MD Pager: [facility] [address] [place] [address] Office:
[2020-04-17] MEDS: 0.9% Normal Saline 1,000 ML 999 ML IV (21:58)
[2020-04-17 23:09] VITALS: BMI 31.6
[2020-04-17 23:18] VITALS: BMI 31.6
[2020-04-17] MEDS: 0.9% Normal Saline 1,000 ML 125 ML IV (23:31)
[2020-04-18] VITALS (11 sets, daily range): BP systolic 124–142; BP diastolic 57–95; PULSE 61–103; RESP 14–28; TEMP 36.2–37; O2SAT 94–100; BMI 31.6
[2020-04-18] MEDS: 0.9% Normal Saline 1,000 ML 125 ML IV ×3 (06:03→21:31)
[2020-04-18 06:55] LABS: Absolute Lymphocyte Count 1.69 X10^3/uL (0.83-4.51); Absolute Neutrophil Count 8.3 X10^3/uL (2.0-7.7); Basophil# 0.04 X10^3/uL; Basophil% 0.4 % (0-1); Eosinophil# 0.07 X10^3/uL; Eosinophils% 0.6 % (0-5); Hematocrit 46.8 % (40-54); Hemoglobin 15.8 g/dL (13.0-16.5); Lymphocyte # 1.69 X10^3/ul (4.0); Lymphocyte % 14.8 % (19-41); Mean Corp Hgb Conc 33.8 g/dL (32-36); Mean Corpuscular Volume 94.9 fL (80-94); Mean Platelet Vol. 10.1 fl (6.2-12.0); Monocyte# 1.22 X10^3/uL; Monocyte% 10.7 % (0-10); NRBC Flagged by Analyzer 0 % (0-5); Neutrophil # 8.31 X10^3/uL (2.7-7.7); Platelet Count 283 K/mm3 (150-450); RBC Distribution Width CV 12.4 % (11.6-14.6); RBC Distribution Width SD 43.1 fl (35.1-43.9); Red Blood Count 4.93 M/mm3 (4.6-6.2); White Blood Count 11.4 K/mm3 (4.4-11.0)
[2020-04-18 07:22] LABS: ALB/GLOB Ratio 1.1 RATIO (0.9-2.4); AST(SGOT) 194 U/L (15-37); Alanine Aminotransfer ALT/SGPT 293 U/L (16-61); Albumin, Serum 3.8 g/dL (3.2-5.0); Alkaline Phosphatase 100 U/L (45-117); Anion Gap 6 (5-15); BUN 7 mg/dL (7-18); BUN/Creat Ratio 8.5 RATIO (10-20); Calcium,Total 8.6 mg/dL (8.5-10.1); Chloride 106 mmol/L (98-107); Creatinine, Serum 0.83 mg/dL (0.70-1.30); EST Glomerular Filtration Rate 107 mL/min (>60); Est Glom Filt Rate - Afr Amer 130 mL/min (>60); Estimated Creatinine Clearance 113.57 ml/min; Globulin 3.6 g/dL (2.2-4.2); Glucose 100 mg/dL (74-106); Lipase 260 U/L (73-393); Potassium 3.6 mmol/L (3.5-5.1); Protein, Total 7.4 g/dL (6.4-8.2); Sodium Level 140 mmol/L (136-145)
--- NOTE | 2020-04-18 07:40 | RAD_ITS ---
STUDY: ERCP REASON FOR EXAM: Male, 44 years old. ERCP FLUOROSCOPY TIME (if supplied): ( 2 minutes and 33 seconds. ) minutes/seconds. A single loop was submitted. TECHNIQUE: An ERCP was performed by the surgeon. Imaging was submitted. COMPARISON: None. FINDINGS: The pancreatic duct is unremarkable. Contrast is seen within the common bile duct. The common bile duct is unremarkable. RAD/ERCP Biliary/Pancreas IMPRESSION: Unremarkable ERCP. Electronically Signed: Tariq Nielsen, at 11:14 EDT , Service support ,
--- NOTE | 2020-04-18 09:09 | PN.SURG_ITS ---
Patient Problems: Active and Suspected Problems Gallstone pancreatitis (Acute) Subjective: Patient has less pain this morning. - Physical Exam Vitals/I&O's: Vital Signs Temp Pulse Resp BP Pulse Ox 98.6 F 74 16 138/95 H 94 04/18/20 08:26 04/18/20 08:26 04/18/20 08:26 04/18/20 08:26 04/18/20 08:26 Oxygen Delivery Method Room Air Weight: 214 lb 1.102 oz Body Mass Index (BMI) 31.6 Intake and Output for Last 24 Hours 04/16/20 04/17/20 04/18/20 23:59 23:59 23:59 Intake Total 1000 / 1000 1191.67 / 1191.67 Output Total 400 / 400 Balance 1000 / 1000 791.67 / 791.67 General: Alert, Oriented x3 Lungs: Normal air movement Cardiovascular: Regular rate, Regular Rhythm Abdomen: Bowel Sounds Present, Soft, Non-Distended, Tender - Mild right upper quadrant tenderness Laboratory Results 04/17/20 18:44: WBC 12.2 H, RBC 5.38, Hgb 17.2 H, Hct 50.1, MCV 93.1, MCH 32.0, MCHC 34.3, RDW Std Deviation 42.3, RDW Coeff of Giovani 12.3, Plt Count 363, MPV 10.0, Immature Gran % (Auto) 0.600, Neut % (Auto) 76.5 H, Lymph % (Auto) 15.6 L, [place] % (Auto) 6.6, Eos % (Auto) 0.3, Baso % (Auto) 0.4, Absolute Neuts (auto) 9.3 H, Absolute Lymphs (auto) 1.91, Nucleated RBC % 0 04/17/20 18:44: Sodium 142, Potassium 4.0, Chloride 107, Carbon Dioxide 28.0, Anion Gap 7, BUN 8, Creatinine 1.12, Estim Creat Clear Calc 84.17, Est GFR (MDRD) Af Amer 92, Est GFR (MDRD) Non-Af 76, BUN/Creatinine Ratio 7.1 L, Glucose 136 H, Calcium 9.7, Total Bilirubin 2.40 H, Direct Bilirubin 1.17 H, AST 208 H, ALT 185 H, Alkaline Phosphatase 98, Troponin I < 0.015, Total Protein 8.4 H, Albumin 4.5, Globulin 3.9, Lipase 509 H 04/17/20 22:15: COVID-19 (JIN) Pending 04/18/20 06:13: WBC 11.4 H, RBC 4.93, Hgb 15.8, Hct 46.8, MCV 94.9 H, MCH 32.0, MCHC 33.8, RDW Std Deviation 43.1, RDW Coeff of Giovani 12.4, Plt Count 283, MPV 10.1, Immature Gran % (Auto) 0.500, Neut % (Auto) 73.0 H, Lymph % (Auto) 14.8 L, [place] % (Auto) 10.7 H, Eos % (Auto) 0.6, Baso % (Auto) 0.4, Absolute Neuts (auto) 8.3 H, Absolute Lymphs (auto) 1.69, Nucleated RBC % 0 04/18/20 06:13: Sodium 140, Potassium 3.6, Chloride 106, Carbon Dioxide 28.0, Anion Gap 6, BUN 7, Creatinine 0.83, Estim Creat Clear Calc 113.57, Est GFR (MDRD) Af Amer 130, Est GFR (MDRD) Non-Af 107, BUN/Creatinine Ratio 8.5 L, Glucose 100, Calcium 8.6, Total Bilirubin 2.60 H, AST 194 H, ALT 293 H, Alkaline Phosphatase 100, Total Protein 7.4, Albumin 3.8, Globulin 3.6, Albumin/Globulin Ratio 1.1, Lipase 260 Current Medications Allopurinol (Zyloprim) 100 mg PO DAILYCM [facility] Last Admin: 04/18/20 08:27 Dose: Not Given Documented by: Hydromorphone HCl (Dilaudid Inj) 1 mg IV Q2H PRN PRN PRN Reason: Pain Score 4-10/10 Sodium Chloride () 1,000 mls @ 125 mls/hr IV .Q8H [facility] Last Infusion: 04/18/20 09:03 Dose: 0 mls/hr Documented by: Pantoprazole Sodium 40 mg/ (Sodium Chloride) 110 mls @ 330 mls/hr IV Q24 [facility] Last Admin: 04/18/20 09:03 Dose: 330 mls/hr Documented by: Sodium Chloride () 250 mls @ 15 mls/hr IV .[id number] PRN PRN Reason: Saline Flush Ondansetron HCl (Zofran) 4 mg IV Q6H PRN PRN PRN Reason: NAUSEA Sodium Chloride () 10 - 40 ml IV UD PRN PRN Reason: SALINE FLUSH Medical Necessity - Tobacco Use Smoking Status: Former smoker Tobacco Use: Cigarettes Assessment/Plan All Active Problems Gallstone pancreatitis (Acute) 44-year-old male with gallstone pancreatitis and elevated liver enzymes 1. The patient continues to have elevated liver enzymes this morning. Plan for ERCP this morning. I discussed ERCP with the patient in detail as well as the risks of bleeding, infection, perforation, pancreatitis. The patient understands the risks and is well to proceed. I also discussed the possibility of stent placement if there is any element of cholangitis. 2. I tentatively have him on the schedule for Tuesday for a laparoscopic cholecystectomy with cholangiogram. Sebastian Winslow MD Pager: [facility] [address] [place] [address], [address] [place] [phone] Office:
--- NOTE | 2020-04-18 11:17 | OP.CCLET_ITS ---
04/18/2020 Julius Valentin Re : ERCP procedure for Steve Bardales Dear Barbie This procedure was performed on Saturday, April 18, 2020. My impressions and recommendations are as follows: Impressions : - Choledocholithiasis was found. Complete removal was accomplished by biliary sphincterotomy and balloon extraction. - A biliary sphincterotomy was performed. - The biliary tree was swept. Recommendations : - Return patient to [facility] for [facility] care. - Clear liquid diet. My findings are described in the full procedure note, which is enclosed. If I can be of further assistance, please feel free to contact me at Doctor phone number(s): , Work: . Sincerely, Sebastian Winslow MD 04/18/2020 11:16:27 AM This report has been signed electronically.
--- NOTE | 2020-04-18 11:17 | OP.ERCP_ITS ---
Patient Name: Steve Bardales Procedure Date: 04/18/2020 9:52 AM Date of : 1975 Age: 44 Procedure: ERCP Indications: Suspected bile duct stone(s), Acute pancreatitis Providers: Sebastian Winslow MD Medicines: Monitored Anesthesia Care Patient Profile: This is a 44 year old male. Refer to note in patient chart for documentation of history and physical. Complications: No immediate complications. Estimated blood loss: Minimal. Procedure: Pre-Anesthesia Assessment: - Prior to the procedure, a History and Physical was performed, and patient medications and allergies were reviewed. The patient's tolerance of previous anesthesia was also reviewed. The risks and benefits of the procedure and the sedation options and risks were discussed with the patient. All questions were answered, and informed consent was obtained. Prior Anticoagulants: The patient has taken no previous anticoagulant or antiplatelet agents. After reviewing the risks and benefits, the patient was deemed in satisfactory condition to undergo the procedure. After obtaining informed consent, the scope was passed under direct vision. Throughout the procedure, the patient's blood pressure, pulse, and oxygen saturations were monitored continuously. The [id number] s/n [id number] endoscope was introduced through the mouth, and advanced to the duodenum and used to inject contrast into the bile duct. The ERCP was accomplished without difficulty. The patient tolerated the procedure well. Scope In: 10:23:32 AM Scope Out: 10:34:28 AM Total Procedure Duration Time 0 hours 10 minutes 56 seconds Findings: A 0.035 inch x 260 cm straight Dreamwire was passed into the biliary tree. The sphincterotome was passed over the guidewire and the bile duct was then deeply cannulated. Contrast was injected. Biliary sphincterotomy was made with a monofilament sphincterotome using ERBE electrocautery. The sphincterotomy oozed blood. The biliary tree was swept with a 12 mm balloon starting at the bifurcation. One stone was removed. No stones remained. The endoscope was withdrawn from the patient. Impression: - Choledocholithiasis was found. Complete removal was accomplished by biliary sphincterotomy and balloon extraction. - A biliary sphincterotomy was performed. - The biliary tree was swept. Recommendation: - [facility] care. - Clear liquid diet. Procedure Code(s): --- Professional --- 80182, Endoscopic retrograde cholangiopancreatography (ERCP); with removal of calculi/debris from biliary/pancreatic duct(s) 79505, 51, Endoscopic retrograde cholangiopancreatography (ERCP); with sphincterotomy/papillotomy Diagnosis Code(s): --- Professional --- K80.50, Calculus of bile duct without cholangitis or cholecystitis without obstruction K85.90, Acute pancreatitis without necrosis or infection, unspecified CPT copyright 2017 [employer]. All rights reserved. The codes documented in this report are preliminary and upon remote inpatient coder review may be revised to meet current compliance requirements. Sebastian Winslow MD 04/18/2020 11:16:27 AM This report has been signed electronically. Number of Addenda: 0 Note Initiated On: 04/18/2020 9:52 AM
[2020-04-18] MEDS: Lactated Ringers 1,000 ML 100 ML IV (11:18)
--- NOTE | 2020-04-18 15:15 | CASEMGMT ---
RN ZAINAB MIXER CRANE OPERATOR CM to room to meet with patient for initial transition planning/care coordination assessment. SUSSY LAMB introduced self and role at [facility]. Pt voices understanding and consents to assessment at this time. Pt resting in bed in no distress at this time. Pt is A/O at this time and answers all questions appropriately. Care providers, pharmacy, and demographics verified/updated at this time. PCP: Dr Valentin Specialists: None Preferred Pharmacy: [facility] Insurance: [employer] Prescription Benefit: Yes Living Will/HPOA: Pt does not currently have LW/HCPOA and declines info at this time. Pt made aware that he can contact SW as an out-pt and make appt in the future if he decides he would like to talk with someone about this or would like to utilize [facility] social work for advanced directive completion. Given Pastry Artist Rac card with information and contact number. Pt expresses understanding. LNOK: , Nidia. Has 4 boys. Living Arrangements: Lives w/his and 6-yr-old son. Independent w/ADL's and IADL's. Transportation: Pt states drives self and states no transportation concerns at this time. also drives DME: Denies using any DME and denies needs. HHC/SNF: No history of either. No needs identified. Pt wishes to return home and states has no concerns with going home at time of discharge. CM to follow for any discharge planning/needs. Pt voices no concerns/needs at this time. Advised pt to ask for CM if any questions/concerns/needs arise. Voices understanding. PLAN: Home Kenneth VARGAS RN, CM
[2020-04-18] MEDS: Allopurinol 100 MG Tablet PO (15:46)
[2020-04-18] MEDS: 0.9% Saline Lock 10 ML Syringe IV (17:01)
[2020-04-18] MEDS: Ondansetron 4 MG/2 ML Vial IV (17:02)
[2020-04-18] MEDS: HYDROmorphone 1 MG/ML Syringe IV ×2 (17:02→22:13)
[2020-04-18 18:19] LABS: Lipase 472 U/L (73-393)
[2020-04-19] MEDS: HYDROmorphone 1 MG/ML Syringe IV ×4 (03:33→19:48)
[2020-04-19] MEDS: Ondansetron 4 MG/2 ML Vial IV ×3 (03:37→19:48)
[2020-04-19 03:48] VITALS: BP 154/95; PULSE 77; RESP 16; TEMP 36.8; O2SAT 96
[2020-04-19] MEDS: 0.9% Normal Saline 1,000 ML 125 ML IV ×3 (05:34→20:58)
[2020-04-19 08:39] VITALS: BP 156/102; PULSE 82; RESP 18; TEMP 36.7; O2SAT 100
--- NOTE | 2020-04-19 09:59 | PN.SURG_ITS ---
Patient Problems: Active and Suspected Problems Gallstone pancreatitis (Acute) Subjective: Patient had some nausea this morning but is backing off on his diet now feels better. Objective: Abdomen is soft - Physical Exam Vitals/I&O's: Vital Signs Temp Pulse Resp BP Pulse Ox 98.0 F 82 18 156/102 H 100 04/19/20 08:39 04/19/20 08:39 04/19/20 08:39 04/19/20 08:39 04/19/20 08:39 Oxygen Flow Rate (L/min) 2 Oxygen Delivery Method Room Air Weight: 214 lb 1.102 oz Body Mass Index (BMI) 31.6 Intake and Output for Last 24 Hours 04/17/20 04/18/20 04/19/20 23:59 23:59 23:59 Intake Total 1000 / 1000 3619.59 / 3919.59 1780 / 1780 Output Total 1435 / 1435 1000 / 1000 Balance 1000 / 1000 2184.59 / 2484.59 780 / 780 Laboratory Results 04/18/20 17:45: Lipase 472 H Current Medications Allopurinol (Zyloprim) 200 mg PO DAILYCM [facility] Hydromorphone HCl (Dilaudid Inj) 1 mg IV Q2H PRN PRN PRN Reason: Pain Score 4-10/10 Last Admin: 04/19/20 08:44 Dose: 1 mg Documented by: Sodium Chloride () 1,000 mls @ 125 mls/hr IV .Q8H [facility] Last Admin: 04/19/20 05:34 Dose: 125 mls/hr Documented by: Pantoprazole Sodium 40 mg/ (Sodium Chloride) 110 mls @ 330 mls/hr IV Q24 [facility] Last Admin: 04/19/20 09:08 Dose: 330 mls/hr Documented by: Sodium Chloride () 250 mls @ 15 mls/hr IV .[id number] PRN PRN Reason: Saline Flush Ondansetron HCl (Zofran) 4 mg IV Q6H PRN PRN PRN Reason: NAUSEA Last Admin: 04/19/20 08:58 Dose: 4 mg Documented by: Sodium Chloride () 10 - 40 ml IV UD PRN PRN Reason: SALINE FLUSH Last Admin: 04/18/20 17:01 Dose: 10 ml Documented by: Medical Necessity - Tobacco Use Smoking Status: Former smoker Tobacco Use: Cigarettes Assessment/Plan All Active Problems Gallstone pancreatitis (Acute) Surgery planned for Tuesday Inpatient E&M: 06923 Subs Hosp L2
[2020-04-19] MEDS: Allopurinol 100 MG Tablet 200 MG PO (11:11)
[2020-04-19] MEDS: proMETHazine 25 MG/ML Syringe 12.5 MG IV (13:15)
[2020-04-19 14:47] VITALS: BP 142/97; PULSE 76; RESP 18; TEMP 37.2; O2SAT 97
[2020-04-19 17:32] VITALS: BP 137/84; PULSE 67; RESP 16; TEMP 36.7; O2SAT 99
[2020-04-19 19:54] VITALS: BP 152/100; PULSE 80; RESP 18; TEMP 36.8; O2SAT 99
[2020-04-20 02:00] VITALS: BP 130/66; PULSE 68; RESP 16; TEMP 36.7; O2SAT 97
[2020-04-20] MEDS: 0.9% Normal Saline 1,000 ML 125 ML IV ×3 (05:00→21:37)
--- NOTE | 2020-04-20 08:58 | PCM.PN.SRG ---
Patient Problems: Active and Suspected Problems Gallstone pancreatitis (Acute) Subjective: Patient sleeping well. Not complaining of any pain or nausea at this time. Objective: Abdomen is soft nontender - Physical Exam Vitals/I&O's: Vital Signs Temp Pulse Resp BP Pulse Ox 98.1 F 68 16 130/66 H 97 04/20/20 02:00 04/20/20 02:00 04/20/20 02:00 04/20/20 02:00 04/20/20 02:00 Oxygen Flow Rate (L/min) 2 Oxygen Delivery Method Room Air Weight: 214 lb 1.102 oz Body Mass Index (BMI) 31.6 Intake and Output for Last 24 Hours 04/18/20 04/19/20 04/20/20 23:59 23:59 23:59 Intake Total 3619.59 / 3919.59 4765.0 / 4765.0 1000 / 1000 Output Total 1435 / 1435 1700 / 1700 1625 / 1625 Balance 2184.59 / 2484.59 3065.0 / 3065.0 -625 / -625 Current Medications Allopurinol (Zyloprim) 200 mg PO DAILYCM [facility] Last Admin: 04/19/20 11:11 Dose: 200 mg Documented by: Hydromorphone HCl (Dilaudid Inj) 1 mg IV Q2H PRN PRN PRN Reason: Pain Score 4-10/10 Last Admin: 04/19/20 19:48 Dose: 1 mg Documented by: Sodium Chloride () 1,000 mls @ 125 mls/hr IV .Q8H [facility] Last Admin: 04/20/20 05:00 Dose: 125 mls/hr Documented by: Pantoprazole Sodium 40 mg/ (Sodium Chloride) 110 mls @ 330 mls/hr IV Q24 [facility] Last Infusion: 04/19/20 09:28 Dose: Infused Documented by: Sodium Chloride () 250 mls @ 15 mls/hr IV .[id number] PRN PRN Reason: Saline Flush Ondansetron HCl (Zofran) 4 mg IV Q6H PRN PRN PRN Reason: NAUSEA Last Admin: 04/19/20 19:48 Dose: 4 mg Documented by: Sodium Chloride () 10 - 40 ml IV UD PRN PRN Reason: SALINE FLUSH Last Admin: 04/18/20 17:01 Dose: 10 ml Documented by: Medical Necessity - Tobacco Use Smoking Status: Former smoker Tobacco Use: Cigarettes Assessment/Plan All Active Problems Gallstone pancreatitis (Acute) Surgery planned for Tuesday
[2020-04-20 10:15] VITALS: BP 136/80; PULSE 71; RESP 16; TEMP 36.4; O2SAT 99
[2020-04-20] MEDS: 0.9% Saline Lock 10 ML Syringe IV (10:22)
[2020-04-20] MEDS: Allopurinol 100 MG Tablet 200 MG PO (10:23)
[2020-04-20] MEDS: Ondansetron 4 MG/2 ML Vial IV ×2 (11:51→19:26)
[2020-04-20] MEDS: HYDROmorphone 1 MG/ML Syringe IV ×3 (11:51→21:37)
[2020-04-20 15:05] VITALS: BP 137/85; PULSE 67; RESP 16; TEMP 36.9; O2SAT 97
[2020-04-20 20:35] VITALS: BP 139/96; PULSE 75; RESP 18; TEMP 36.9; O2SAT 100
[2020-04-21] VITALS (15 sets, daily range): BP systolic 125–163; BP diastolic 67–113; PULSE 64–106; RESP 16–24; TEMP 36.6–37.2; O2SAT 93–100; BMI 31.9
--- NOTE | 2020-04-21 | GALL_PTH ---
PATIENT: TRU JEFFRIES LOC: MS3 U#:[id number] AGE/SX: 44/M ROOM: MS312 RE04/17/[address]: Dr. Sebastian Winslow MD : 1975 BED: 1 DIS: 04/22/2020 SPEC #: [id number] RECD: 04/21/20 10:39 STATUS: PHILIPPE MUÑIZ #: [id number] GER: 04/21/20 00:[address]: Sebastian Winslow DEPT: SURGICAL PATHOLOGY RECD BY: Christo White ENTERED: 04/21/20 10:39 SP TYPE: ASHLEY GUILLEN DR: Dr. Julius Valentin DO Tissues: Gallbladder, NOS Procedures: Surgery Specimen Level III HEADER OPERATION: ERCP PRE-OP DIAGNOSIS: Gallstone pancreatitis TISSUE SUBMITTED: Gallbladder MICROSCOPIC DIAGNOSIS Gallbladder, cholecystectomy: Mild chronic cholecystitis and cholelithiasis. A few minute benign polyps consistent with cholesterolosis. SJ:milly 04/22/20 MICROSCOPIC DESCRIPTION Slides are reviewed. GROSS DESCRIPTION Received is one container labeled with the patient's name and designated gallbladder. The specimen consists of a gallbladder measuring 10 cm in length and up to 3.5 cm in diameter. The external surface is pink-dexter, smooth and glistening for the most part. Focally it is granular, hemorrhagic and contains cautery artifact. The gallbladder contains green-yellow mucoid bile and multiple yellowish-green stones measuring in aggregate 1 x 0.5 x 0.3 cm and 0.1 to 0.3 cm in greatest dimension. The mucosa is bile-stained and without any mass lesions. The gallbladder wall measures up to 0.3 cm in thickness. Two yellowish small polyps are noted each measuring 0.2 cm in greatest dimension consistent with cholesterolosis polyp. Ornament Setter sections from the gallbladder and the cystic duct are submitted in one cassette. The small polyps are submitted in entirety. / DUDLEY:milly 04/21/20 TC:3 CPT: 80848
[2020-04-21] MEDS: 0.9% Saline Lock 10 ML Syringe IV ×3 (00:03→22:53)
[2020-04-21] MEDS: HYDROmorphone 1 MG/ML Syringe IV ×4 (00:03→22:52)
[2020-04-21] MEDS: 0.9% Normal Saline 1,000 ML 125 ML IV ×2 (05:31→17:12)
--- NOTE | 2020-04-21 06:51 | PCM.PN.SRG ---
Patient Problems: Active and Suspected Problems Gallstone pancreatitis (Acute) Subjective: Patient has some right upper quadrant pain and nausea and vomiting yesterday. That subsided through the day and he is not having any pain or nausea this morning. - Physical Exam Vitals/I&O's: Vital Signs Temp Pulse Resp BP Pulse Ox 97.9 F 68 16 130/78 H 98 04/21/20 03:07 04/21/20 03:07 04/21/20 03:07 04/21/20 03:07 04/21/20 03:07 Oxygen Flow Rate (L/min) 2 Oxygen Delivery Method Room Air Weight: 215 lb 9.793 oz Body Mass Index (BMI) 31.9 Intake and Output for Last 24 Hours 04/19/20 04/20/20 04/21/20 23:59 23:59 23:59 Intake Total 4765.0 / 4765.0 3753.75 / 3803.75 1037.5 / 1037.5 Output Total 1700 / 1700 4175 / 4770 1145 / 1145 Balance 3065.0 / 3065.0 -421.25 / -966.25 -107.5 / -107.5 General: Alert, Oriented x3 Lungs: Normal air movement Cardiovascular: Regular rate, Regular Rhythm Abdomen: Soft, Non Tender, Non-Distended Laboratory Results 04/17/20 22:15: COVID-19 (JIN) Not Detected Current Medications Allopurinol (Zyloprim) 200 mg PO DAILYCM [facility] Last Admin: 04/20/20 10:23 Dose: 200 mg Documented by: Hydromorphone HCl (Dilaudid Inj) 1 mg IV Q2H PRN PRN PRN Reason: Pain Score 4-10/10 Last Admin: 04/21/20 00:03 Dose: 1 mg Documented by: Sodium Chloride () 1,000 mls @ 125 mls/hr IV .Q8H [facility] Last Admin: 04/21/20 05:31 Dose: 125 mls/hr Documented by: Pantoprazole Sodium 40 mg/ (Sodium Chloride) 110 mls @ 330 mls/hr IV Q24 [facility] Last Infusion: 04/20/20 10:41 Dose: Infused Documented by: Sodium Chloride () 250 mls @ 15 mls/hr IV .[id number] PRN PRN Reason: Saline Flush Ondansetron HCl (Zofran) 4 mg IV Q6H PRN PRN PRN Reason: NAUSEA Last Admin: 04/20/20 19:26 Dose: 4 mg Documented by: Sodium Chloride () 10 - 40 ml IV UD PRN PRN Reason: SALINE FLUSH Last Admin: 04/21/20 00:03 Dose: 10 ml Documented by: Medical Necessity - Tobacco Use Smoking Status: Former smoker Tobacco Use: Cigarettes Assessment/Plan All Active Problems Gallstone pancreatitis (Acute) 44-year-old male with gallstone pancreatitis 1. Patient had ERCP Tuesday and removal of common bile duct stone. Patient did have nausea and vomiting yesterday but then afterwards he started passing a lot of gas. He reports no nausea or vomiting today and no pain today. Plan for laparoscopic cholecystectomy to prevent future episodes of this. 2. I discussed the procedure in detail with the patient. I discussed the risks, benefits, and alternatives of the procedure. I discussed the risks including but not limited to bleeding, infection, injury to surrounding organs such as the liver, bile duct, bowels. I did discuss the possibility of having to convert to an open procedure as well as the possibility that if any injuries occurred this may necessitate further surgery at a tertiary care center. Sebastian Winslow MD Pager: [facility] [address] [place] [address], [address] [place] [address] Office:
[2020-04-21 07:07] LABS: Absolute Lymphocyte Count 1.83 X10^3/uL (0.83-4.51); Absolute Neutrophil Count 3.7 X10^3/uL (2.0-7.7); Basophil# 0.04 X10^3/uL; Basophil% 0.6 % (0-1); Eosinophil# 0.15 X10^3/uL; Eosinophils% 2.3 % (0-5); Hematocrit 43.7 % (40-54); Hemoglobin 15.1 g/dL (13.0-16.5); Lymphocyte # 1.83 X10^3/ul (4.0); Lymphocyte % 27.9 % (19-41); Mean Corp Hgb Conc 34.6 g/dL (32-36); Mean Corpuscular Hgb 32.4 pg (27.0-32.0); Mean Corpuscular Volume 93.8 fL (80-94); Mean Platelet Vol. 9.9 fl (6.2-12.0); Monocyte# 0.82 X10^3/uL; Monocyte% 12.5 % (0-10); NRBC Flagged by Analyzer 0 % (0-5); Neutrophil % 56.4 % (47-70); Platelet Count 264 K/mm3 (150-450); RBC Distribution Width CV 12.3 % (11.6-14.6); RBC Distribution Width SD 42.4 fl (35.1-43.9); Red Blood Count 4.66 M/mm3 (4.6-6.2); White Blood Count 6.6 K/mm3 (4.4-11.0)
[2020-04-21 07:22] LABS: AST(SGOT) 80 U/L (15-37); Alanine Aminotransfer ALT/SGPT 215 U/L (16-61); Albumin, Serum 3.6 g/dL (3.2-5.0); Alkaline Phosphatase 113 U/L (45-117); Anion Gap 7 (5-15); BUN 6 mg/dL (7-18); BUN/Creat Ratio 7.1 RATIO (10-20); Calcium,Total 8.8 mg/dL (8.5-10.1); Chloride 108 mmol/L (98-107); Creatinine, Serum 0.84 mg/dL (0.70-1.30); EST Glomerular Filtration Rate 105 mL/min (>60); Est Glom Filt Rate - Afr Amer 127 mL/min (>60); Estimated Creatinine Clearance 108.57 ml/min; Globulin 3.5 g/dL (2.2-4.2); Glucose 95 mg/dL (74-106); Potassium 3.5 mmol/L (3.5-5.1); Protein, Total 7.1 g/dL (6.4-8.2); Sodium Level 141 mmol/L (136-145)
--- NOTE | 2020-04-21 08:54 | RAD_ITS ---
STUDY: INTRAOPERATIVE CHOLANGIOGRAM REASON FOR EXAM: Male, 44 years old. LAP BERNADETTE -- 1 CINE RUN RADIATION DOSAGE (If Supplied By Facility): CTDIvol = ( ) mGy, DLP = ( ) mGycm. Individualized dose optimization techniques were used for this CT.? FLUOROSCOPY TIME (if supplied): ( 15 ) seconds TECHNIQUE: Surgical procedure performed by Dr. Winslow COMPARISON: None. FINDINGS: After removal of the gallbladder, the cystic duct remnant was cannulized, and contrast injected in a retrograde manner. There is normal filling of the biliary ducts as well as the extrahepatic common bile duct. There is no biliary dilatation and there is free flow of contrast into the duodenum. No extravasation of contrast is noted. RAD/Cholangiogram/ O R,Initial IMPRESSION: Normal intraoperative cholangiogram Electronically Signed: Nicolas Calderon MD at 10:03 EDT , Service support ,
[2020-04-21] MEDS: Bupiv/Epi 0.25% 30 ML Vial (09:15)
--- NOTE | 2020-04-21 10:29 | PCM.OPRPT ---
Problem List (1) Gallstone pancreatitis Status: Acute Report of Operation Date of Procedure: 04/21/20 Pre-Operative Diagnosis: Gallstone pancreatitis Post-Operative Diagnosis: Gallstone pancreatitis. Acute cholecystitis Surgery/Procedure Performed:: Laparoscopic cholecystectomy with cholangiogram Specimen's removed: Gallbladder and contents Description of Procedure: After obtaining informed consent patient was brought back to the operating room. General anesthesia was induced. The abdomen was prepped and draped in usual sterile fashion. A small midline incision was made superior to the umbilicus and deepened to the level of fascia. The fascia was elevated and incised. Next the peritoneum was elevated and incised in the same fashion. Finger sweep was performed and the Nava trocar was placed into the abdomen. The balloon was inflated. The abdomen was inflated to 15 mmHg. Next a camera was introduced into the abdomen and the abdomen was inspected. Next under direct visualization three 5-mm ports were placed one subxiphoid and 2 subcostal. Next the gallbladder was elevated and retracted toward the right shoulder. The peritoneum was stripped from the gallbladder. The gallbladder appeared very inflamed especially at the infundibulum. The infundibulum was located and retracted laterally. Next the triangle of Calot was dissected and the cystic duct and cystic artery were identified. Cholangiograms were performed. The Oquendo clamp was used to clamp across the infundibulum and the catheter needle was inserted into the gallbladder. Under fluoroscopy contrast was instilled into the gallbladder and the common duct, cystic duct as well as proximal hepatic ducts were identified. There was good filling of the duodenum. There were no filling defects noted in the common bile duct. The clamp was removed as well as the needle and the infundibulum was grasped once more. Three hemolock clips were placed across the cystic duct. The cystic duct was then divided leaving 2 clips on the stump. The cystic artery was clipped and divided in the same fashion. The hook cautery was then used to take the gallbladder off of the gallbladder bed. Hemostasis was obtained. Gallbladder fossa was irrigated and no active bleeding or bile leakage was noted. Next the camera was introduced in the subxiphoid port. An Endopouch bag was placed through the umbilical port and the gallbladder was placed into it. The gallbladder was then removed through the umbilical incision. The camera was then reinserted through the umbilical port. The gallbladder fossa was inspected once more and noted to be hemostatic with no leaking bile. The abdomen was suctioned dry. The 5 mm ports were removed under direct visualization. The umbilical port was then removed and the air was removed from the abdomen. Next using an 0 Vicryl suture the umbilical fascia was closed in a [id number] fashion. The umbilical port site was irrigated local anesthetic was administered to all the incisions. All the incisions were closed with interrupted subcuticular 4-0 Monocryl sutures followed by Steri-Strips and dressings. The patient was awoken and taken to PACU in stable condition. - Admit VTE Documentation VTE Mechan Device Prophylaxis: SCD's
[2020-04-21] MEDS: Ondansetron 4 MG/2 ML Vial IV (12:35)
[2020-04-21] MEDS: Ketorolac 15 MG/ML Vial IV (12:35)
[2020-04-21] MEDS: Allopurinol 100 MG Tablet 200 MG PO (13:40)
[2020-04-21] MEDS: Tamsulosin HCl 0.4 MG Capsule PO (13:40)
[2020-04-21] MEDS: oxyCODONE 5 MG Tablet PO ×2 (14:28→18:13)
[2020-04-22] MEDS: 0.9% Saline Lock 10 ML Syringe IV ×2 (00:06→08:52)
[2020-04-22] MEDS: Ketorolac 15 MG/ML Vial IV (00:06)
[2020-04-22] MEDS: HYDROmorphone 1 MG/ML Syringe IV (01:59)
[2020-04-22 06:12] LABS: Absolute Lymphocyte Count 1.59 X10^3/uL (0.83-4.51); Absolute Neutrophil Count 5.5 X10^3/uL (2.0-7.7); Basophil# 0.04 X10^3/uL; Basophil% 0.5 % (0-1); Eosinophils% 1.2 % (0-5); Hematocrit 40.3 % (40-54); Hemoglobin 13.8 g/dL (13.0-16.5); Lymphocyte # 1.59 X10^3/ul (4.0); Lymphocyte % 18.7 % (19-41); Mean Corp Hgb Conc 34.2 g/dL (32-36); Mean Corpuscular Hgb 32.2 pg (27.0-32.0); Mean Corpuscular Volume 94.2 fL (80-94); Mean Platelet Vol. 10.1 fl (6.2-12.0); Monocyte# 1.27 X10^3/uL; Monocyte% 14.9 % (0-10); NRBC Flagged by Analyzer 0 % (0-5); Neutrophil # 5.46 X10^3/uL (2.7-7.7); Neutrophil % 64.2 % (47-70); Platelet Count 246 K/mm3 (150-450); RBC Distribution Width CV 12.2 % (11.6-14.6); RBC Distribution Width SD 42.1 fl (35.1-43.9); Red Blood Count 4.28 M/mm3 (4.6-6.2); White Blood Count 8.5 K/mm3 (4.4-11.0)
[2020-04-22 06:42] LABS: ALB/GLOB Ratio 1.1 RATIO (0.9-2.4); AST(SGOT) 95 U/L (15-37); Alanine Aminotransfer ALT/SGPT 202 U/L (16-61); Albumin, Serum 3.3 g/dL (3.2-5.0); Alkaline Phosphatase 112 U/L (45-117); Anion Gap 5 (5-15); BUN 7 mg/dL (7-18); BUN/Creat Ratio 7.7 RATIO (10-20); Calcium,Total 8.5 mg/dL (8.5-10.1); Chloride 107 mmol/L (98-107); Creatinine, Serum 0.91 mg/dL (0.70-1.30); EST Glomerular Filtration Rate 96 mL/min (>60); Est Glom Filt Rate - Afr Amer 116 mL/min (>60); Estimated Creatinine Clearance 100.22 ml/min; Globulin 2.9 g/dL (2.2-4.2); Glucose 118 mg/dL (74-106); Potassium 3.7 mmol/L (3.5-5.1); Protein, Total 6.2 g/dL (6.4-8.2); Sodium Level 141 mmol/L (136-145)
--- NOTE | 2020-04-22 07:49 | PN.SURG_ITS ---
Patient Problems: Active and Suspected Problems Gallstone pancreatitis (Acute) Subjective: The patient says that he is doing better today. He did require IV pain medication overnight and he had a Ng placed due to urinary retention. - Physical Exam Vitals/I&O's: Vital Signs Temp Pulse Resp BP Pulse Ox 97.9 F 106 H 16 149/108 H 97 04/21/20 20:00 04/21/20 20:00 04/21/20 20:00 04/21/20 20:00 04/21/20 20:00 Oxygen Flow Rate (L/min) 2 Oxygen Delivery Method Room Air Weight: 215 lb 9.793 oz Body Mass Index (BMI) 31.9 Intake and Output for Last 24 Hours 04/20/20 04/21/20 04/22/20 23:59 23:59 23:59 Intake Total 3753.75 / 3803.75 3034.75 / 3634.75 900 / 900 Output Total 4175 / 4770 3420 / 3820 800 / 800 Balance -421.25 / -966.25 -385.25 / -185.25 100 / 100 General: Alert, Oriented x3 Lungs: Normal air movement Abdomen: Soft, Non-Distended, Tender Laboratory Results 04/22/20 05:48: WBC 8.5, RBC 4.28 L, Hgb 13.8, Hct 40.3, MCV 94.2 H, MCH 32.2 H, MCHC 34.2, RDW Std Deviation 42.1, RDW Coeff of Giovani 12.2, Plt Count 246, MPV 10.1, Immature Gran % (Auto) 0.500, Neut % (Auto) 64.2, Lymph % (Auto) 18.7 L, [place] % (Auto) 14.9 H, Eos % (Auto) 1.2, Baso % (Auto) 0.5, Absolute Neuts (auto) 5.5, Absolute Lymphs (auto) 1.59, Nucleated RBC % 0 04/22/20 05:48: Sodium 141, Potassium 3.7, Chloride 107, Carbon Dioxide 29.0, Anion Gap 5, BUN 7, Creatinine 0.91, Estim Creat Clear Calc 100.22, Est GFR (MDRD) Af Amer 116, Est GFR (MDRD) Non-Af 96, BUN/Creatinine Ratio 7.7 L, Glucose 118 H, Calcium 8.5, Total Bilirubin 2.10 H, AST 95 H, ALT 202 H, Alkaline Phosphatase 112, Total Protein 6.2 L, Albumin 3.3, Globulin 2.9, Albumin/Globulin Ratio 1.1 Current Medications Acetaminophen (Tylenol) 650 mg PO Q4H PRN PRN PRN Reason: Pain 1-3 or Fever Allopurinol (Zyloprim) 200 mg PO DAILYCM [facility] Last Admin: 04/21/20 13:40 Dose: 200 mg Documented by: Hydromorphone HCl (Dilaudid Inj) 1 mg IV Q2H PRN PRN PRN Reason: Pain Score 4-10/10 Last Admin: 04/22/20 01:59 Dose: 1 mg Documented by: Pantoprazole Sodium 40 mg/ (Sodium Chloride) 110 mls @ 330 mls/hr IV Q24 [facility] Last Infusion: 04/21/20 12:55 Dose: Infused Documented by: Sodium Chloride () 250 mls @ 15 mls/hr IV .[id number] PRN PRN Reason: Saline Flush Ketorolac Tromethamine (Toradol (Bkc)) 15 mg IV Q8H PRN PRN PRN Reason: Pain Score 4-10/10 Stop: 04/23/20 09:56 Last Admin: 04/22/20 00:06 Dose: 15 mg Documented by: Ondansetron HCl (Zofran) 4 mg IV Q6H PRN PRN PRN Reason: NAUSEA Last Admin: 04/21/20 12:35 Dose: 4 mg Documented by: Oxycodone HCl (Oxyir) 5 - 10 mg PO Q4H PRN PRN PRN Reason: Pain Score 4-10/10 Last Admin: 04/21/20 18:13 Dose: 10 mg Documented by: Sodium Chloride () 10 - 40 ml IV UD PRN PRN Reason: SALINE FLUSH Last Admin: 04/22/20 00:06 Dose: 10 ml Documented by: Medical Necessity - Tobacco Use Smoking Status: Former smoker Tobacco Use: Cigarettes Assessment/Plan All Active Problems Gallstone pancreatitis (Acute) 44-year-old male status post laparoscopic cholecystectomy for gallstone pancreatitis 1. The patient had straight cath x2 yesterday and still had urinary retention. Ng catheter was placed. Patient will be discharged with Ng catheter and follow-up on for removal. 2. The patient is also requiring IV pain medication at this time but once he is having his pain controlled with oral medications he will be discharged. Sebastian Winslow MD Pager: [facility] [address] [place] [address], [address] [place] [phone] Office:
--- NOTE | 2020-04-22 07:52 | DCINST_ITS ---
Discharge Diet: Light diet - advance as tolerated Discharge Activity: Return to Normal Activity, May Shower Lifting Restrictions: 20 lbs for 2 weeks Additional Activity Instructions:: Pain medication may cause nausea. You should typically eat light foods as you take your pain medications. Pain medication may also cause constipation. If this is a problem for you, please discuss with your doctor. Call your doctor if your incision/area has: Continuous Slow Oozing, Sudden Increased Bleeding, Increased Pain/ Swelling, Increased Redness, Foul Smelling Discharge, Fever of 101 or Higher Call your doctor if you observe: Fever of 101 or Higher Suture Line Care: Avoid Pulling/Pushing, Avoid Pinching/Bending Cleanse incision/area with: Soap & Water Catheter: Ng to leg bag Allergies/Adverse Reactions: Allergies Penicillins [PCN] Allergy (Verified 04/17/20 18:43) Unknown Medications to take at Discharge Allopurinol [Zyloprim] 200 mg PO DAILY 06/16/17 Prednisone 20 mg PO Q6H PRN 02/22/20 Acetaminophen [Tylenol Tablet] 650 mg PO Q4H PRN PRN tablet 04/22/20 Oxycodone [Oxyir] 5 - 10 mg PO Q4H PRN PRN 5 Days #40 tab 04/22/20 The following prescriptions were given: Oxycodone [Oxyir] 5 - 10 mg PO Q4H PRN PRN 5 Days #40 tab PRN Reason: Pain Score 4-10/10 Transmission Status: Sent to [facility] Test Results: Test results from this visit will be discussed in further detail at your follow- up appointment, if applicable. Please Follow Up With: Sebastian Winslow MD When: Please call to schedule 2 week follow up appointment. [phone] Please Follow Up With: Sebastian Winslow MD When: Call to schedule nurse appointment for for Ng removal
[2020-04-22] MEDS: oxyCODONE 5 MG Tablet PO (08:52)
[2020-04-22] MEDS: Allopurinol 100 MG Tablet 200 MG PO (08:52)
[2020-04-22 08:55] VITALS: BP 147/92; PULSE 90; RESP 18; TEMP 37.6; O2SAT 100
--- NOTE | 2020-04-22 11:40 | PHA.DC.MR ---
Pharmacy Service has performed discharge medication reconciliation for this patient. *Note: Went to patient's room to perform discharge counselling, but patient had already left the hospital. A medrec was also conducted prior to counselling patient. Home Medications Allopurinol [Zyloprim] 200 mg PO DAILY 06/16/17 Prednisone 20 mg PO Q6H PRN 02/22/20 Acetaminophen [Tylenol Tablet] 650 mg PO Q4H PRN PRN tab 04/22/20 Oxycodone [Oxyir] 5 - 10 mg PO Q4H PRN PRN 5 Days #40 tab 04/22/20 The patient's discharge medication list was reviewed for discrepancies and discrepancies were resolved.
--- NOTE | 2020-04-24 15:29 | CASEMGMT ---
SUSSY LAMB Discharge Follow-up Phone Call: LJ: Cynthia Strata: 3 Call Date: 04/24/20 Discharge Date: 04/22/20 Time of Call: 1525 Duration: 4 min Admitting Diagnosis: Gallstone Pancreatitis SUSSY LAMB completed follow-up phone call after recent hospitalization. Patient states he is doing well. Patient states he followed up at surgeon's office to remove borja. Patient had no questions or concerns regarding discharge instructions. Patient was able to fill meds without any issues. Patient has follow-up appt scheduled with surgeon. Patient had no further questions or concerns.
--- NOTE | 2020-04-25 07:30 | PCM.DC.SUM ---
Discharge Date and Diagnosis Date of Admission: 04/17/20 Date of Discharge: 04/22/20 - Secondary Discharge Diagnosis Chronic Problems: Chronic Problems Gout (Chronic) Overweight (BMI 25.0-29.9) (Chronic) Hospital Course and Treatment Imaging Results: Clinical Impression(s) from Imaging Studies Gallbladder Ultrasound 04/17/20 18:59 IMPRESSION: Mildly distended gallbladder. Gallbladder sludge and polyps are noted. A positive Fernandez''s sign was elicited as per photographic laboratory technician. Pancreatic tail was not visualized. The pancreatic head and body appear normal. There is no dilatation of the intra or extra hepatic biliary ductal system. The liver is echogenic suggestive of steatosis. Electronically Signed: Diego Alonzo MD at 19:59 EDT , Service support , Abdomen/Pelvis CT 04/17/20 20:30 IMPRESSION: 1. Distended gallbladder. No calcified gallstones are seen. There is no pericholecystic fluid or pericholecystic inflammatory process. 2. Nonobstructing bilateral renal calculi. 3. Diffuse colonic diverticulosis with no evidence of associated diverticulitis. 4. Small fat-containing umbilical hernia. 5. Degenerative changes of the spine at the L5-S1 level. 6. Hepatic steatosis. 7. There is no evidence of free intra-abdominal or intrapelvic air or fluid. Electronically Signed: Diego Alonzo MD at 21:09 EDT , Service support , Endo Retro Cholangiopancreatogram 04/18/20 07:40 IMPRESSION: Unremarkable ERCP. Electronically Signed: Tariq Nielsen, at 11:14 EDT , Service support , Cholangiogram 04/21/20 08:54 IMPRESSION: Normal intraoperative cholangiogram Electronically Signed: Nicolas Calderon MD at 10:03 EDT , Service support , Operations: [email or web address], ERCP Procedures: None Summary of Care Provided: The patient is a 44 year old M presented with biliary obstruction and gallstone pancreatitis. The following day his LFTs remained unchanged and he was taken for ERCP and the stone was removed from his common bile duct. Once the patient's pancreatitis resolved he was taken for laparoscopic cholecystectomy. Patient tolerated the procedure well. Once he is tolerating a diet he was discharged home in stable condition. - Physical Exam Vitals/I&O's: Vital Signs Temp Pulse Resp BP Pulse Ox 99.7 F H 90 18 147/92 H 100 04/22/20 08:55 04/22/20 08:55 04/22/20 08:55 04/22/20 08:55 04/22/20 08:55 Oxygen Flow Rate (L/min) 2 Oxygen Delivery Method Room Air Weight: 215 lb 9.793 oz Body Mass Index (BMI) 31.9 Discharge Diet: Light diet - advance as tolerated Discharge Activity: Return to Normal Activity, May Shower Additional Activity Instructions:: Pain medication may cause nausea. You should typically eat light foods as you take your pain medications. Pain medication may also cause constipation. If this is a problem for you, please discuss with your doctor. Call your doctor if your incision/area has: Continuous Slow Oozing, Sudden Increased Bleeding, Increased Pain/ Swelling, Increased Redness, Foul Smelling Discharge, Fever of 101 or Higher Call your doctor if you observe: Fever of 101 or Higher Suture Line Care: Avoid Pulling/Pushing, Avoid Pinching/Bending Cleanse incision/area with: Soap & Water Catheter: Ng to leg bag Home Medications: Medications to take at Discharge Allopurinol [Zyloprim] 200 mg PO DAILY 06/16/17 Prednisone 20 mg PO Q6H PRN 02/22/20 Acetaminophen [Tylenol Tablet] 650 mg PO Q4H PRN PRN tab 04/22/20 Oxycodone [Oxyir] 5 - 10 mg PO Q4H PRN PRN 5 Days #40 tab 04/22/20 Following Prescriptions Were Given to Patient: Oxycodone [Oxyir] 5 - 10 mg PO Q4H PRN PRN 5 Days #40 tab PRN Reason: Pain Score 4-10/10 Transmission Status: Received by [facility] Primary Care Physician: Julius Valentin DO [Primary Care Provider] - Please Follow Up With: Sebastian Winslow MD When: Please call to schedule 2 week follow up appointment. [phone] Please Follow Up With: Sebastian Winslow MD When: Call to schedule nurse appointment for for Ng removal Medical Necessity - Tobacco Use Smoking Status: Former smoker Tobacco Use: Cigarettes Meaningful Use Info Meaningful Use Diagnoses (Choose all that apply): None applicable
== END 2020-04-22 10:54 | disposition home or self-care (01) | DRG 263 ==
LOC: ED 19:16 → MS3 04-18 00:54
PROVIDERS: Admitting Provider Surgery; Emergency Provider Emergency Medicine; PCP Family Medicine; Visit Provider Surgery
PROC: 0FC98ZZ Extirpation of Matter from Common Bile Duct, Via Natural or Artificial Opening Endoscopic (ICD-10-PCS; CPT 43260; principal; 2020-04-18 09:30)
PROC: 0FT44ZZ Resection of Gallbladder, Percutaneous Endoscopic Approach (ICD-10-PCS; CPT 47610; principal; 2020-04-21 08:45)
DX: K85.10 Biliary acute pancreatitis without necrosis or infection (principal); K42.9 Umbilical hernia without obstruction or gangrene; K80.42 Calculus of bile duct with acute cholecystitis without obstruction; F17.210 Nicotine dependence, cigarettes, uncomplicated; R33.9 Retention of urine, unspecified; M10.9 Gout, unspecified; Z87.442 Personal history of urinary calculi; E86.0 Dehydration; K76.0 Fatty (change of) liver, not elsewhere classified; K57.30 Diverticulosis of large intestine without perforation or abscess without bleeding; N20.0 Calculus of kidney; E66.3 Overweight; Z68.32 Body mass index [BMI] 32.0-32.9, adult
CPT/HCPCS: 36415; 74177; 74300; 74330; 76000; 76705; 80048; 80053; 80076; 83690; 84484; 85025; 87635; 88304; 93005; 94799; 99251; 99284; J7030; J7120; Q9967; A4216; G0463; J1610; J2405; U0003

== ENCOUNTER → 2020-05-19 09:21 | Outpatient (CLI) | payer MEDICAID, SELFPAY ==
[2020-04-24 10:32] VITALS: BMI 31.9
--- NOTE | 2020-05-19 09:23 | US_ITS ---
STUDY: RENAL ULTRASOUND - COMPLETE REASON FOR EXAM: Male, 44 years old. NEPHROLITHIASIS TECHNIQUE: Ultrasound evaluation of the kidneys was performed with real-time and static hollis-scale imaging. COMPARISON: Comparison is made with prior examination dated 04/17/2020. FINDINGS: RIGHT KIDNEY: Normal location of the right kidney, which is normal in size. The right kidney measures 11.3 cm x 5.6 cm x 5.5 cm. There is a normal cortex of the right kidney. The renal cortex measures 1.3 cm. There is no right renal mass or cyst. There is a 5 mm x 5 mm calculus in the lower pole. There is no right hydronephrosis. DISTAL RIGHT URETER: There is non-visualization of the distal right ureter. There is no demonstrated right ureterovesical junction calculus. There is a visualized right ureteral jet. LEFT KIDNEY: Normal location of the left kidney, which is normal in size. The left kidney measures 11.3 cm x 5.5 cm x 5.6 cm. There is a normal cortex of the left kidney. The renal cortex measures 1.5 cm. There is no left renal mass or cyst. There are no left renal calculi. There is no left hydronephrosis. DISTAL LEFT URETER: There is non-visualization of the distal left ureter. There is no demonstrated left ureterovesical junction calculus. There is a visualized left ureteral jet. BLADDER: The distended urinary bladder has a volume of 393 ml. There is a normal wall thickness of the distended urinary bladder. There is no demonstrated mass within the urinary bladder. There are no demonstrated bladder calculi. US/Kidney and Bladder IMPRESSION: Nonobstructive right intrarenal calculus. Electronically Signed: Tariq Nielsen, at 15:32 EDT , Service support ,
--- NOTE | 2020-05-19 10:18 | RAD_ITS ---
STUDY: X-RAY - ABDOMEN/PELVIS REASON FOR EXAM: Male, 44 years old. RIGHT URETIA CALCULUS. NIC NEPHROLITHIASIS TECHNIQUE: Single AP view of the abdomen / pelvis. COMPARISON: None. FINDINGS: Normal visualized lung bases. There is a moderate amount of colonic fecal material. Questionable faint calcification in the midportion of the left kidney. Normal soft tissue structures. Normal visualized osseous structures. RAD/Abdomen Single View IMPRESSION: Moderate amount of fecal material is seen in the colon. Electronically Signed: Tariq Nielsen, at 15:52 EDT , Service support ,
== END ==
PROVIDERS: PCP Family Medicine
DX: N20.0 Calculus of kidney (principal); N20.1 Calculus of ureter
CPT/HCPCS: 74018; 76770